=== PATIENT | male | born 1980 | race Caucasian/White ===

== ENCOUNTER 2021-12-01 19:08 | Inpatient (IN) | payer OTHER, SELFPAY ==
--- NOTE | ~2021-12-01 | CT_ITS ---
EXAMINATION: CT ABDOMEN AND PELVIS WITHOUT CONTRAST CLINICAL INFORMATION: Rectal bleeding and pain, rule out colitis COMPARISON: None TECHNIQUE: Multidetector volumetric imaging was performed from the superior aspect of the liver through the pubic symphysis. Sagittal and coronal reformatted images were obtained on the technologist's workstation. This CT examination was performed using dose optimization techniques as appropriate, variously including the following: *Automated exposure control *Adjustment of mA and/or kV according to patient size (this includes techniques or standardized protocols for targeted exams where dose is matched to indication/reason for exam; i.e. extremities or head) *Use of iterative reconstruction technique DLP: 551 mGy-cm FINDINGS: LUNG BASES: Subsegmental atelectasis in the right middle lobe. LIVER, GALLBLADDER, AND BILIARY TREE: The liver is normal in size, shape, and attenuation. No focal hepatic lesion or biliary ductal dilatation is identified. The gallbladder is unremarkable with no evidence of radiopaque gallstones, gallbladder wall thickening, or obvious pericholecystic inflammatory changes. PANCREAS: Unremarkable. SPLEEN: Unremarkable. ADRENAL GLANDS: Unremarkable. KIDNEYS AND URETERS: The kidneys are normal in size, shape, and attenuation. No hydronephrosis, hydroureter, or calculi seen. No perinephric stranding. BLADDER: Unremarkable. GASTROINTESTINAL TRACT: No evidence of bowel obstruction. Although not well distended, there is a relatively short segment of suspected colonic wall thickening at the splenic flexure, raising concern for a possible colitis. Patient appears to be status post appendectomy. No free fluid or free air is seen. ABDOMINAL WALL: No significant hernia is appreciated. LYMPH NODES: Normal. VASCULAR: Unremarkable. PELVIC VISCERA: Unremarkable. OSSEOUS STRUCTURES: Unremarkable. CT/CT abdomen pelvis wo IV con IMPRESSION: Although not well distended, there is a relatively short segment of suspected colonic wall thickening at the splenic flexure which raises concern for possible colitis in the proper clinical setting. No additional acute findings identified.
[2021-12-01 20:34] VITALS: BP 153/97; PULSE 75; RESP 18; TEMP 37.6; O2SAT 96; BMI 29.9
[2021-12-01 22:53] LABS: MANUAL DIFF FLAG NO
[2021-12-01 22:56] LABS: Basophils Percent Auto 0.3 % (0-2); Eosinophils Percent Auto 0.4 % (0-4); Hemoglobin 15.7 g/dl (14.0-18.0); Imm Gran Abs Auto 0.03 X10*3/uL (0.00-0.03); Imm Gran Pct Auto 0.3 % (0.0-0.4); Lymphocytes Percent Auto 20.7 % (20-40); Mean Corpuscular HGB Conc 33.4 g/dl (31.0-36.0); Mean Corpuscular Volume 89.9 fL (80.0-98.0); Mean Platelet Volume 8.5 fL (9.4-12.4); Monocytes Absolute Auto 0.7 X10*3/uL (0.1-1.2); Monocytes Percent Auto 7.3 % (2-11); Neutrophils Absolute Auto 6.8 x10*3/uL (2.0-8.3); Platelet Count 234 X10*3/uL (160-400); Red Blood Count 5.23 X10*6/uL (4.60-5.80); Red Cell Distribution Width 12.2 % (11.0-16.0); White Blood Count 9.6 X10*3/uL (4.8-10.8)
[2021-12-01 23:13] LABS: Alanine Aminotransferase 35 U/L (0-40); Albumin Level 4.5 g/dL (3.5-5.0); Alkaline Phosphatase 52 U/L (39-117); Anion Gap 16 (12-20); Aspartate Amino Transferase 18 U/L (5-37); Bilirubin Direct 0.2 mg/dL (0.0-0.5); Bilirubin Total 0.7 mg/dL (0.0-1.0); Blood Urea Nitrogen 8 mg/dL (9-16); Calcium 9.3 mg/dL (8.4-10.2); Carbon Dioxide 25 mmol/L (22-29); Chloride 103 mmol/L (96-108); Creatinine Clr Calc Pharmacy 91.1; Estimated Glomerular Filt Rate > 60; Glucose Random 112 mg/dL (60-115); Lipase 113 U/L (8-78); Sodium 140 mmol/L (135-145)
[2021-12-01 23:41] VITALS: BP 152/85; PULSE 64; RESP 16; TEMP 36.8; O2SAT 98
[2021-12-02 00:09] LABS: Appearance Urine Clear; Color Urine Yellow; Glucose Urine UA Negative (Negative); Leukocyte Esterase Urine Negative (Negative); Nitrite Urine Negative (Negative); PH 6.5 (5.0-9.0); Specific Gravity - Urine <= 1.005 (1.005-1.025); Urine Blood Negative (Negative); Urine Ketones Negative (Negative); Urine Protein Negative (Neg-Trace)
--- NOTE | 2021-12-02 00:11 | ED.GIBLEED ---
HPI - GI Bleed General Chief complaint: GI Bleed Stated complaint: rectal bleeding Time Seen by Provider: 12/02/21 00:07 Source: patient Mode of arrival: ambulatory Limitations: no limitations History of Present Illness HPI Narrative: 40-year-old male came in for evaluation of rectal bleed and abdominal pain. 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 No recent travel, no recent use of antibiotic. Surgical history is significant for appendectomy. Related Data Allergies Allergy/AdvReac Type Severity Reaction Status Date / Time No Known Allergies Allergy Verified 12/01/21 20:33 [No Known Allergies*] Review of Systems Review of Systems: All other systems are reviewed and are negative Constitutional: Reports as per HPI and Reports no additional constitutional complaints Eyes: Reports as per HPI and Reports no additional eye complaints Reports system reviewed and no additional complaints, except as documented Cardiovascular: Reports as per HPI and Reports no additional cardiovascular complaints Respiratory: Reports as per HPI and Reports no additional respiratory complaints Gastrointestinal: Reports as per HPI and Reports no additional gastrointestinal complaints Genitourinary: Reports no additional female genitourinary complaints Musculoskeletal: Reports no additional musculoskeletal complaints Skin/Breast: Reports system reviewed and no additional complaints, except as docu Psychiatric: Reports no additional psychiatric complaints Endocrine: Reports no additional endocrine complaints Hematologic/Lymphatic: Reports no additional hematologic/lymphatic complaints Allergic/Immunologic: Reports no additional allergic/immunologic complaints Reports system reviewed and no additional complaints, except as documented and Reports Abnormal speech present [facility] Social History Social History Advance Directives: No Advance Directives Information Provided: Yes Physical Exam Vital Signs: Vital Signs: Last Vital Signs Temp 97.8 F 12/02/21 01:50 Pulse 60 12/02/21 01:50 Resp 17 12/02/21 01:50 BP 125/67 12/02/21 01:50 Pulse Ox 97 12/02/21 01:50 O2 Del Method 12/02/21 01:50 BMI result Body Mass Index 29.9 Vital signs have been reviewed as appeared to be correct. Blood pressure normal. Heart rate normal. Respiration rate normal. Temperature normal. Oxygen saturation normal. Appearance: Alert. Oriented X3. No acute distress. Head: Normal external exam. Normocephalic. Atraumatic. No Barrios signs noted. No raccoon eyes noted Eyes: PERRLA. EOMI. Conjunctiva and sclera normal. Eyelids normal. ENT: TM's Normal. Pharynx normal. Uvula midline. Moist mucous membranes. No trismus noted. No drooling noted. No muffled voice noted. Neck: Normal inspection. Neck supple. FROM. No adenopathy. Thyroid Normal. No meningeal signs. No neck mass noted. CVS: Normal heart rate and rhythm. Heart sound normal. No murmurs noted. Pulses normal throughout. Respiratory: No respiratory distress. Painless inspiration. Breath sounds normal. No wheezes/rales/rhonchi noted. Chest nontender. No accessory muscle usage noted or decreased air movement noted. Abdomen: Soft, mild diffuse lower abdominal tenderness, no rebound tenderness, no guarding.. Bowel sounds normal in all 4 quadrants. No distention noted. No organomegaly noted. No visible injury noted. Rectal exam: Hematochezia, no internal or external hemorrhoid. Back: No CVA tenderness. Full range of motion noted. Skin: Skin warm and dry. Normal skin color. Normal skin turgor. No rashes/lesions/lacerations noted. Extremities: No lower extremity edema. Extremities exhibit normal range of motion. Extremities nontender. Neuro: Oriented X 3. Cranial nerve exam: II-XII are grossly intact No motor deficit. No sensory deficit. Reflexes normal. Course Course Course Narrative: 40-year-old male with multiple bloody watery diarrhea in the ED CT of abdomen is consistent with colitis. Start the patient on Solu-Medrol and give antibiotic and will admit for further GI evaluation. MDM - GI Bleed Lab Data Attestation: I reviewed the patient's lab results. Result diagrams: 12/01/21 22:49 12/01/21 22:49 Labs: Lab Results 12/01/21 12/01/21 12/01/21 Range/Units 22:49 22:49 23:39 WBC 9.6 (4.8-10.8) X10*3/uL RBC 5.23 (4.60-5.80) X10*6/uL Hgb 15.7 (14.0-18.0) g/dl Hct 47.0 (42.0-52.0) % MCV 89.9 (80.0-98.0) fL MCH 30.0 (27.0-33.0) pg MCHC 33.4 (31.0-36.0) g/dl RDW 12.2 (11.0-16.0) % Plt Count 234 (160-400) X10*3/uL MPV 8.5 L (9.4-12.4) fL Immature Gran % (Auto) 0.3 (0.0-0.4) % Neut % (Auto) 71.0 (45-73) % Lymph % (Auto) 20.7 (20-40) % [place] % (Auto) 7.3 (2-11) % Eos % (Auto) 0.4 (0-4) % Baso % (Auto) 0.3 (0-2) % Lymph # (Auto) 2.0 (1.2-4.9) X10*3/uL [place] # (Auto) 0.7 (0.1-1.2) X10*3/uL Eos # (Auto) 0.0 (0.0-0.4) X10*3/uL Baso # (Auto) 0.0 (0.0-0.2) X10*3/uL Abs Immat Gran (auto) 0.03 (0.00-0.03) X10*3/uL Absolute Neuts (auto) 6.8 (2.0-8.3) x10*3/uL Absolute Nucleated RBC 0.000 (0.0-0.012) X10*3/uL Nucleated RBC % (auto) 0.0 (0.0-0.2) /100WBC Sodium 140 (135-145) mmol/L Potassium 4.0 (3.3-5.1) mmol/L Chloride 103 (96-108) mmol/L Carbon Dioxide 25 (22-29) mmol/L Anion Gap 16 (12-20) BUN 8 L (9-16) mg/dL Creatinine 1.07 (0.5-1.4) mg/dL Estim Creat Clear Calc 91.1 Estimated GFR > 60 Random Glucose 112 (60-115) mg/dL Calcium 9.3 (8.4-10.2) mg/dL Total Bilirubin 0.7 (0.0-1.0) mg/dL Direct Bilirubin 0.2 (0.0-0.5) mg/dL AST 18 (5-37) U/L ALT 35 (0-40) U/L Alkaline Phosphatase 52 (39-117) U/L Total Protein 7.0 (6.5-8.0) g/dL Albumin 4.5 (3.5-5.0) g/dL Lipase 113 H (8-78) U/L Urine Color Yellow Urine Appearance Clear Urine pH 6.5 (5.0-9.0) Ur Specific [place] <= 1.005 (1.005-1.025) Urine Protein Negative (Neg-Trace) mg/dL Urine Glucose (UA) Negative (Negative) mg/dL Urine Ketones Negative (Negative) mg/dL Urine Blood Negative (Negative) Urine Nitrite Negative (Negative) Ur Leukocyte Esterase Negative (Negative) Stool Occult Blood (NEGATIVE) 12/02/21 Range/Units 00:12 WBC (4.8-10.8) X10*3/uL RBC (4.60-5.80) X10*6/uL Hgb (14.0-18.0) g/dl Hct (42.0-52.0) % MCV (80.0-98.0) fL MCH (27.0-33.0) pg MCHC (31.0-36.0) g/dl RDW (11.0-16.0) % Plt Count (160-400) X10*3/uL MPV (9.4-12.4) fL Immature Gran % (Auto) (0.0-0.4) % Neut % (Auto) (45-73) % Lymph % (Auto) (20-40) % [place] % (Auto) (2-11) % Eos % (Auto) (0-4) % Baso % (Auto) (0-2) % Lymph # (Auto) (1.2-4.9) X10*3/uL [place] # (Auto) (0.1-1.2) X10*3/uL Eos # (Auto) (0.0-0.4) X10*3/uL Baso # (Auto) (0.0-0.2) X10*3/uL Abs Immat Gran (auto) (0.00-0.03) X10*3/uL Absolute Neuts (auto) (2.0-8.3) x10*3/uL Absolute Nucleated RBC (0.0-0.012) X10*3/uL Nucleated RBC % (auto) (0.0-0.2) /100WBC Sodium (135-145) mmol/L Potassium (3.3-5.1) mmol/L Chloride (96-108) mmol/L Carbon Dioxide (22-29) mmol/L Anion Gap (12-20) BUN (9-16) mg/dL Creatinine (0.5-1.4) mg/dL Estim Creat Clear Calc Estimated GFR Random Glucose (60-115) mg/dL Calcium (8.4-10.2) mg/dL Total Bilirubin (0.0-1.0) mg/dL Direct Bilirubin (0.0-0.5) mg/dL AST (5-37) U/L ALT (0-40) U/L Alkaline Phosphatase (39-117) U/L Total Protein (6.5-8.0) g/dL Albumin (3.5-5.0) g/dL Lipase (8-78) U/L Urine Color Urine Appearance Urine pH (5.0-9.0) Ur Specific [place] (1.005-1.025) Urine Protein (Neg-Trace) mg/dL Urine Glucose (UA) (Negative) mg/dL Urine Ketones (Negative) mg/dL Urine Blood (Negative) Urine Nitrite (Negative) Ur Leukocyte Esterase (Negative) Stool Occult Blood POSITIVE (NEGATIVE) Imaging Data CT abdomen and pelvis: Attestation: I personally reviewed and interpreted this imaging study as follows: Radiologist's impression: Although not well distended, there is a relatively short segment of suspected colonic wall thickening at the splenic flexure which raises concern for possible colitis in the proper clinical setting. No additional acute findings identified. Discharge Plan Discharge Clinical Impression: Hematochezia, Lower gastrointestinal hemorrhage Patient Disposition: Admitted As Inpatient
[2021-12-02 00:17] LABS: OBS Int Ctl Valid YES; OBS1 POSITIVE (NEGATIVE)
[2021-12-02 01:50] VITALS: BP 125/67; PULSE 60; RESP 17; TEMP 36.6; O2SAT 97
[2021-12-02] MEDS: metroNIDAZOLE 500 MG TABLET PO (03:26)
[2021-12-02] MEDS: methylPREDNISolone Sod Succ 125 MG/2 ML VIAL IVPUSH (03:26)
[2021-12-02] MEDS: levoFLOXacin/D5W 750 MG/150 ML PIGGYBACK 100 MG IV (04:03)
--- NOTE | 2021-12-02 04:58 | P.HPHOSP_ITS ---
History of Present Illness Date of Service: 12/02/21 Chief Complaint: Hematochezia 40-year-old male with no significant past medical history presents to the hospital with complaints of bloody diarrhea. Patient reports generalized abdominal pain, several episodes of bloody diarrhea, nausea, and some episodes of vomiting. Patient denies any previous similar episode. He reports his symptoms started a prior to presentation. Denies any fever no chills, no chest pain or shortness of breath, no urinary symptoms and no lower extremity edema. On arrival to the ED patient hemodynamically stable with no significant abnormality Labs unremarkable Abdominal pelvic CT shows acute colitis in the splenic flexure Patient started on IV steroids and will be admitted for further evaluation Review of Systems Review of Systems: Yes all other systems are reviewed and are negative [facility] Medical History (Updated 12/02/21 @ 07:20 by Carolina Jules MD) No pertinent past medical history Family History (Updated 12/02/21 @ 07:19 by Carolina Jules MD) Other Diabetes Hypertension Surgical History (Updated 12/02/21 @ 07:18 by Carolina Jules MD) No pertinent past surgical history Social History (Updated 12/02/21 @ 07:19 by Carolina Jules MD) Alcohol intake: current Patient Tobacco Use Status: Never used Tobacco Use of substances other than those prescribed or required for medical reasons: Yes Substance Use Type: Marijuana Advance Directives: No Advance Directives Information Provided: Yes Meds Allergies Allergy/AdvReac Type Severity Reaction Status Date / Time No Known Allergies Allergy Verified 12/01/21 20:33 [No Known Allergies*] Home Medications Medication Instructions Recorded Confirmed Last Taken Type bupropion HCl 150 mg 24 hr tablet, 1 tab PO DAILY 12/02/21 Unknown History extended release methylphenidate HCl 10 mg biphasic 1 cap PO DAILY 12/02/21 Unknown History 30-70 capsule,extended release sertraline 100 mg tablet 1.5 tab PO DAILY 12/02/21 Unknown History Physical Exam Vital Signs and Narrative: Vital Signs: Last Vital Signs Temp 97.8 F 12/02/21 01:50 Pulse 60 12/02/21 01:50 Resp 17 12/02/21 01:50 BP 125/67 12/02/21 01:50 Pulse Ox 97 12/02/21 01:50 O2 Del Method 12/02/21 01:50 BMI result Body Mass Index 29.9 Const: General: cooperative and no acute distress Orientation/consciousness: patient oriented x3 Eyes: General: appearance normal, both eyes and all related structures Resp: Effort & Inspection: normal respiratory effort Auscultation: clear to auscultation bilaterally Cardio: Rate: regular rate Rhythm: regular rhythm GI: Palpation (GI): Soft to palpation Auscultation: normal bowel sounds Skin: General skin exam: no rashes or lesions noted Neuro: General: patient oriented x3 Cognition (Neuro): normal cognition Extrem: General: Yes normal to inspection and Yes no pedal edema Results Labs CBC and Chem 7: 12/01/21 22:49 12/01/21 22:49 Labs: Laboratory Results - last 24 hr 12/01/21 12/01/21 12/01/21 22:49 22:49 23:39 MCV 89.9 MCH 30.0 MCHC 33.4 RDW 12.2 Plt Count 234 MPV 8.5 L Immature Gran % (Auto) 0.3 Neut % (Auto) 71.0 Lymph % (Auto) 20.7 [place] % (Auto) 7.3 Eos % (Auto) 0.4 Baso % (Auto) 0.3 Lymph # (Auto) 2.0 [place] # (Auto) 0.7 Eos # (Auto) 0.0 Baso # (Auto) 0.0 Abs Immat Gran (auto) 0.03 Absolute Neuts (auto) 6.8 Absolute Nucleated RBC 0.000 Nucleated RBC % (auto) 0.0 Anion Gap 16 Estim Creat Clear Calc 91.1 Estimated GFR > 60 Random Glucose 112 Lactic Acid Calcium 9.3 Total Bilirubin 0.7 Direct Bilirubin 0.2 AST 18 ALT 35 Alkaline Phosphatase 52 Total Protein 7.0 Albumin 4.5 Lipase 113 H Urine Color Yellow Urine Appearance Clear Urine pH 6.5 Ur Specific [place] <= 1.005 Urine Protein Negative Urine Glucose (UA) Negative Urine Ketones Negative Urine Blood Negative Urine Nitrite Negative Ur Leukocyte Esterase Negative Stool Occult Blood 12/02/21 12/02/21 00:12 03:39 MCV MCH MCHC RDW Plt Count MPV Immature Gran % (Auto) Neut % (Auto) Lymph % (Auto) [place] % (Auto) Eos % (Auto) Baso % (Auto) Lymph # (Auto) [place] # (Auto) Eos # (Auto) Baso # (Auto) Abs Immat Gran (auto) Absolute Neuts (auto) Absolute Nucleated RBC Nucleated RBC % (auto) Anion Gap Estim Creat Clear Calc Estimated GFR Random Glucose Lactic Acid 1.0 Calcium Total Bilirubin Direct Bilirubin AST ALT Alkaline Phosphatase Total Protein Albumin Lipase Urine Color Urine Appearance Urine pH Ur Specific [place] Urine Protein Urine Glucose (UA) Urine Ketones Urine Blood Urine Nitrite Ur Leukocyte Esterase Stool Occult Blood POSITIVE Imaging Radiologist's Impressions: Impressions Abdomen/Pelvis CT 12/02/21 01:18 IMPRESSION: Although not well distended, there is a relatively short segment of suspected colonic wall thickening at the splenic flexure which raises concern for possible colitis in the proper clinical setting. No additional acute findings identified. Assessment and Plan (1) Hematochezia: Status: Acute (2) Acute colitis: Status: Acute Plan 40-year-old male with no significant past medical history presents to the hospital with hematochezia # hematochezia - hemoglobin stable - likely secondary to acute colitis - cannot rule out ulcerative colitis - at this time will treat with steroids, antibiotics - GI consulted # acute colitis - likely ulcerative given his age and presentation - will treat with steroids and IV antibiotics at this time pending GI consult DVT prophylaxis: SCDs Quality Stroke Does the patient have a stroke diagnosis?: No VTE Prior VTE?: No VTE Risk Level:: Medical - moderate - high VTE Device Contraindication: N/A - Device Ordered VTE Drug Contraindication: Treatment Not Indicated
[2021-12-02 05:14] VITALS: BP 122/70; PULSE 75; RESP 18; TEMP 36.4; O2SAT 98
[2021-12-02 06:09] VITALS: RESP 16
[2021-12-02] MEDS: Morphine Sulfate 4 MG/ML CARTRIDGE IVPUSH (06:09)
[2021-12-02 06:40] LABS: COVID-19 Test Negative (Negative); IDNOW Serial# 16C4AD1C
[2021-12-02 07:37] VITALS: BP 128/62; PULSE 83; RESP 12
[2021-12-02 07:45] LABS: Basophils Percent Auto 0.2 % (0-2); Hematocrit 47.3 % (42.0-52.0); Hemoglobin 15.7 g/dl (14.0-18.0); Imm Gran Abs Auto 0.06 X10*3/uL (0.00-0.03); Imm Gran Pct Auto 0.5 % (0.0-0.4); Lymphocytes Absolute Auto 0.9 X10*3/uL (1.2-4.9); MANUAL DIFF FLAG SCAN; Mean Corpuscular HGB Conc 33.2 g/dl (31.0-36.0); Mean Corpuscular Hemoglobin 29.8 pg (27.0-33.0); Mean Corpuscular Volume 89.9 fL (80.0-98.0); Mean Platelet Volume 8.7 fL (9.4-12.4); Monocytes Absolute Auto 0.2 X10*3/uL (0.1-1.2); Monocytes Percent Auto 1.2 % (2-11); Neutrophils Absolute Auto 11.2 x10*3/uL (2.0-8.3); Neutrophils Percent Auto 91.1 % (45-73); Platelet Count 245 X10*3/uL (160-400); Red Blood Count 5.26 X10*6/uL (4.60-5.80); SCAN SMEAR FLAG 1; White Blood Count 12.3 X10*3/uL (4.8-10.8)
[2021-12-02 08:00] VITALS: BP 131/73; PULSE 87; RESP 18; TEMP 36.6; O2SAT 97
[2021-12-02 08:06] LABS: SLIDE REVIEW VERIFIED
[2021-12-02 08:16] LABS: Blood Urea Nitrogen 8 mg/dL (9-16); Calcium 9.2 mg/dL (8.4-10.2); Creatinine Clr Calc Pharmacy 81.9; Estimated Glomerular Filt Rate > 60; Glucose Random 130 mg/dL (60-115)
[2021-12-02 08:23] LABS: Anion Gap 16 (12-20); Carbon Dioxide 24 mmol/L (22-29); Chloride 102 mmol/L (96-108); Potassium 4.9 mmol/L (3.3-5.1); Sodium 137 mmol/L (135-145)
[2021-12-02 09:15] LABS: C Reactive Protein 0.29 mg/dL (< or = 0.50)
[2021-12-02 09:22] VITALS: BMI 29.9
--- NOTE | 2021-12-02 09:35 | P.CNGI_ITS ---
History of Present Illness Data of Consult Service Date: 12/02/21 Requesting physician: Carolina Jules Primary Care Provider: None Physician HPI Reason for consult: Bloody diarrhea This is a 40-year-old gentleman with no significant past medical history who presented to the hospital yesterday morning for sudden onset of abdominal pain, nausea, vomiting and diarrhea and was found to have an abnormal CT scan. History obtained from the patient, who states that he was in his usual state of health Wednesday, woke up in the early hours of Wednesday with severe abdominal pain, cramping, fevers, chills and proceeded to have loose bowel movements. Shortly after he also developed nausea and vomiting. After a few bowel movements, I started seeing drops of blood in the toilet bowl, which progressively increased. Denies any stools that were maroon or mixed with blood. Due to persistent abdominal pain, fevers and diarrhea, he presented to the emergency room. Vitals initially showed a low-grade temp. Lab significant for elevated white count. CT scan showed colon wall thickening in the left colon. Patient had an egg sandwich in [employer] the evening before getting sick, but does not recall consuming undercooked eggs or spoiled milk. He lives alone, no sick contacts at home. 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 Currently in the time of evaluation, he reports feeling much better, abdominal cramping has improved. Has not had any further bowel movements since coming to the hospital. No further nausea or vomiting either. Feels ready to try oral diet. Review of Systems Review of Systems: Yes all other systems are reviewed and are negative [facility] Past Medical History Medical History No pertinent past medical history Family History Family History Other Diabetes Hypertension Surgical History Surgical History No pertinent past surgical history Social History Social History (Updated 12/02/21 @ 09:39 by Melissa Spence MD) Household Members: Spouse Housing: House Do you presently have visiting nurse or other home services: No Alcohol intake: current Patient Tobacco Use Status: Never used Tobacco Use of substances other than those prescribed or required for medical reasons: Yes Substance Use Type: Marijuana Advance Directives: No Advance Directives Information Provided: Yes Meds Allergies Allergy/AdvReac Type Severity Reaction Status Date / Time No Known Allergies Allergy Verified 12/01/21 20:33 [No Known Allergies*] Active Medications: Current Medications Acetaminophen (Acetaminophen 325 Mg Tablet) 650 mg PO Q6H PRN PRN Reason: Pain, Mild (Pain Scale 1-3) Dextrose (Dextrose 50 % 25 Gm/50 Ml Syringe) 25 gm IVPUSH Q15M PRN; Protocol PRN Reason: per Hypoglycemia Standing Ord. Docusate Sodium (Docusate Sodium 100 Mg Capsule) 100 mg PO DAILY PRN PRN Reason: Constipation Glucose (Glucose Gel 15 Gm Gel..Gram.) 15 gm PO Q15M PRN; Protocol PRN Reason: per Hypoglycemia Standing Ord. Metronidazole (Metronidazole 500 Mg Tablet) 500 mg PO Q8H KRAINA Morphine Sulfate (Morphine Sulfate 4 Mg/Ml Cartridge) 4 mg IVPUSH Q4H PRN; Protocol PRN Reason: Pain, Severe (Pain Scale 7-10) Last Admin: 12/02/21 06:09 Dose: 4 mg Ondansetron HCl (Ondansetron Hcl 4 Mg/2 Ml Vial) 4 mg IVPUSH Q8H PRN PRN Reason: Nausea and Vomiting Sodium Chloride (0.9 % Sodium Chloride Flush 3 Ml Syringe) [address] [facility] Home Medications Medication Instructions Recorded Confirmed Last Taken Type bupropion HCl 150 mg 24 hr tablet, 1 tab PO DAILY 12/02/21 Unknown History extended release methylphenidate HCl 10 mg biphasic 1 cap PO DAILY 12/02/21 Unknown History 30-70 capsule,extended release sertraline 100 mg tablet 1.5 tab PO DAILY 12/02/21 Unknown History Physical Exam Vital Signs: Vital Signs: Last Vital Signs Temp 98 F 12/02/21 08:00 Pulse 87 12/02/21 08:00 Resp 18 12/02/21 08:00 BP 131/73 12/02/21 08:00 Pulse Ox 97 12/02/21 08:00 O2 Del Method 12/02/21 08:00 BMI result Body Mass Index 29.9 Gen appear: No acute distress, well nourished HEENT: no icterus, no cervical lymphadenopathy Chest: No overt resp distress CVS: S1/S2, regular Abd: soft, nontender, nondistended Psych: Stable affect, answering questions appropriately Neuro: A/Ox3 noted to move all extremities spontaneously Ext: no peripheral edema Results Labs CBC & Chem 7: 12/02/21 07:25 12/02/21 07:25 Labs: Short CBC 12/01/21 12/02/21 Range/Units 22:49 07:25 WBC 9.6 12.3 H (4.8-10.8) X10*3/uL Hgb 15.7 15.7 (14.0-18.0) g/dl Hct 47.0 47.3 (42.0-52.0) % Plt Count 234 245 (160-400) X10*3/uL BMP 12/01/21 12/02/21 22:49 07:25 Sodium 140 137 Potassium 4.0 4.9 D Chloride 103 102 Carbon Dioxide 25 24 BUN 8 L 8 L Creatinine 1.07 1.19 Calcium 9.3 9.2 Liver Function 12/01/21 Range/Units 22:49 Total Bilirubin 0.7 (0.0-1.0) mg/dL Direct Bilirubin 0.2 (0.0-0.5) mg/dL AST 18 (5-37) U/L ALT 35 (0-40) U/L Alkaline Phosphatase 52 (39-117) U/L Albumin 4.5 (3.5-5.0) g/dL Urine 12/01/21 Range/Units 23:39 Urine Color Yellow Urine Appearance Clear Urine pH 6.5 (5.0-9.0) Ur Specific [place] <= 1.005 (1.005-1.025) Urine Protein Negative (Neg-Trace) mg/dL Urine Glucose (UA) Negative (Negative) mg/dL Imaging CT scan - abdomen: Radiologist's impression: ?No evidence of bowel obstruction. Although not well distended, there is a relatively short segment of suspected colonic wall thickening at the splenic flexure, raising concern for a possible colitis. Patient appears to be status post appendectomy. No free fluid or free air is seen.? Assessment and Plan (1) Acute diarrhea: Status: Acute (2) Acute colitis: Status: Acute (3) Hematochezia: Status: Acute Plan Patient presents with acute diarrheal illness with scant amount of blood in stools. This is consistent with outlet bleeding likely exacerbated with frequent bowel movements. Acute diarrheal illness/colitis is most likely infectious in nature. Patient has improved significantly within 24 hours, which is also consistent with an infectious picture. Other differentials include inflammatory bowel disease, ischemia. Recommendations: -Would hold off on antibiotic, specially as E Coli remains a possible infectious cause and ABx may predispose to HUS -No indication for steroids at present -CRP, fecal calpro and GI panel ordered -Can be started on BRAT diet as tolerated -Office follow up in 4 weeks for check in and to rule out any persistent/chronic symptoms that may need further work up at that time. Recommendations were reviewed with the hospitalist. Thank you for allowing me to participate in Jose Manuel's care. Please reach out for any questions or concerns. Procedures Date of Service Date of Service: 12/02/21
[2021-12-02 10:46] VITALS: BP 121/75; PULSE 75; RESP 16; TEMP 36.1; O2SAT 97
--- NOTE | 2021-12-02 11:03 | PHA.MEDREC ---
Pharmacy Consult ? Medication Reconciliation Pharmacy has completed the medication reconciliation. Pt confirmed he only takes one whole tablet of sertraline 100mg, not 1.5 tab
[2021-12-02 11:11] LABS: Glucose, Whole Blood 128 mg/dL (60-115)
--- NOTE | 2021-12-02 11:44 | MHC.CM.PN ---
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 JEREMY VAX X 3. [facility]CP [facility]
--- NOTE | 2021-12-02 13:57 | P.DS_ITS ---
DS: Providers Provider Date of Service: 12/02/21 Date of admission: 12/02/21 04:55 Primary care physician: None Physician Consults: 12/02/21 04:52 Consult to Gastroenterology Routine Consulting Provider: Melissa Spence Reason for consultation: Colitis , UC? Has provider been notified: No DS: Diagnosis Discharge Diagnosis (1) Acute diarrhea: Status: Acute (2) Acute colitis: Status: Acute (3) Hematochezia: Status: Acute DS: Summary Hospital Course Hospital Course: 40-year-old male with no significant past medical history presents to the hospital with complaints of bloody diarrhea.? Patient reports generalized abdominal pain, several episodes of bloody diarrhea, nausea, and some episodes of vomiting.? Patient denies any previous similar episode.? He reports his symptoms started a prior to presentation.? Denies any fever no chills, no chest pain or shortness of breath, no urinary symptoms and no lower extremity edema. On arrival to the ED patient hemodynamically stable with no significant abnormality Labs unremarkable Abdominal pelvic CT shows acute colitis in the splenic flexure Patient started on IV steroids and will be admitted for further evaluation. Hospital course: Patient came with possible colitis likely infectious - resolved repeatedly, seen by GI -recommended to defer antibiotic,blood cultures pending but patient is asymptomatic, no fever, patient does not have any diarrhea anymore so no stool study able to send. Seen by GI recommended advanced diet which patient tolerated and subsequently discharged. moniter cbc with pcp due to mild leucocytosis. Patient is to follow up with GI-out patiently for further workup for colitis plan: Would hold off on antibiotic, specially as E Coli remains a possible infectious cause and ABx may predispose to HUS -No indication for steroids at present. started on BRAT diet as tolerated -Office follow up in outpatient for check in and to rule out any persistent/chronic symptoms that may need further work up at that time. Above management discussed with the patient in detail length he understand and in agreement with the above plan, time spent 50 minutes and 50% time spent on counseling. Significant findings: As above. Procedures performed: None. Treatment and response: As above. Complications: None. Time Spent with Patient Time attestation: Total time spent providing and/or coordinating discharge services: Discharge coordination time: Greater than 30 minutes Quality: Safe Use of Opioids Does Pt have an Active Cancer Diagnosis on the Problem List?: No Quality: Stroke Does the patient have a stroke diagnosis?: No Physical Exam Vital Signs: Vital Signs: Last Vital Signs Temp 97 F 12/02/21 10:46 Pulse 75 12/02/21 10:46 Resp 16 12/02/21 10:46 BP 121/75 12/02/21 10:46 Pulse Ox 97 12/02/21 10:46 O2 Del Method 12/02/21 10:46 BMI result Body Mass Index 29.9 Appearance: Alert.? Oriented X3.? not in distress.? Eyes: Pupils equal, round and reactive to light.? Sclera nonicteric.? ENT: Pharynx normal.? Moist mucous membranes. cvs: rrr, [id number] . res: clear to auscultation ,no rhonchii or wheezing abd: no rebound or guarding ,nt, bs present. ext pulses present , no cyanosis . neuro: axo3 , nonfocal. DS: Data Data Completed and Pending Labs on day of discharge: Laboratory Results - last 24 hr 12/01/21 12/01/21 12/01/21 22:49 22:49 23:39 WBC 9.6 RBC 5.23 Hgb 15.7 Hct 47.0 MCV 89.9 MCH 30.0 MCHC 33.4 RDW 12.2 Plt Count 234 MPV 8.5 L Immature Gran % (Auto) 0.3 Neut % (Auto) 71.0 Lymph % (Auto) 20.7 [place] % (Auto) 7.3 Eos % (Auto) 0.4 Baso % (Auto) 0.3 Lymph # (Auto) 2.0 [place] # (Auto) 0.7 Eos # (Auto) 0.0 Baso # (Auto) 0.0 Abs Immat Gran (auto) 0.03 Absolute Neuts (auto) 6.8 Absolute Nucleated RBC 0.000 Nucleated RBC % (auto) 0.0 Smear Tech's Comments Sodium 140 Potassium 4.0 Chloride 103 Carbon Dioxide 25 Anion Gap 16 BUN 8 L Creatinine 1.07 Estim Creat Clear Calc 91.1 Estimated GFR > 60 POC Glucose Random Glucose 112 Lactic Acid Calcium 9.3 Total Bilirubin 0.7 Direct Bilirubin 0.2 AST 18 ALT 35 Alkaline Phosphatase 52 C-Reactive Protein Total Protein 7.0 Albumin 4.5 Lipase 113 H Urine Color Yellow Urine Appearance Clear Urine pH 6.5 Ur Specific [place] <= 1.005 Urine Protein Negative Urine Glucose (UA) Negative Urine Ketones Negative Urine Blood Negative Urine Nitrite Negative Ur Leukocyte Esterase Negative Stool Occult Blood COVID-19 ([facility]) COVID-19 Clin Com 12/02/21 12/02/21 12/02/21 00:12 03:39 06:21 WBC RBC Hgb Hct MCV MCH MCHC RDW Plt Count MPV Immature Gran % (Auto) Neut % (Auto) Lymph % (Auto) [place] % (Auto) Eos % (Auto) Baso % (Auto) Lymph # (Auto) [place] # (Auto) Eos # (Auto) Baso # (Auto) Abs Immat Gran (auto) Absolute Neuts (auto) Absolute Nucleated RBC Nucleated RBC % (auto) Smear Tech's Comments Sodium Potassium Chloride Carbon Dioxide Anion Gap BUN Creatinine Estim Creat Clear Calc Estimated GFR POC Glucose Random Glucose Lactic Acid 1.0 Calcium Total Bilirubin Direct Bilirubin AST ALT Alkaline Phosphatase C-Reactive Protein Total Protein Albumin Lipase Urine Color Urine Appearance Urine pH Ur Specific [place] Urine Protein Urine Glucose (UA) Urine Ketones Urine Blood Urine Nitrite Ur Leukocyte Esterase Stool Occult Blood POSITIVE COVID-19 ([facility]) Negative COVID-19 Clin Com See Note 12/02/21 12/02/21 12/02/21 07:25 07:25 11:06 WBC 12.3 H RBC 5.26 Hgb 15.7 Hct 47.3 MCV 89.9 MCH 29.8 MCHC 33.2 RDW 12.0 Plt Count 245 MPV 8.7 L Immature Gran % (Auto) 0.5 H Neut % (Auto) 91.1 H Lymph % (Auto) 7.0 L [place] % (Auto) 1.2 L Eos % (Auto) 0.0 Baso % (Auto) 0.2 Lymph # (Auto) 0.9 L [place] # (Auto) 0.2 Eos # (Auto) 0.0 Baso # (Auto) 0.0 Abs Immat Gran (auto) 0.06 H Absolute Neuts (auto) 11.2 H Absolute Nucleated RBC 0.000 Nucleated RBC % (auto) 0.0 Smear Tech's Comments VERIFIED Sodium 137 Potassium 4.9 D Chloride 102 Carbon Dioxide 24 Anion Gap 16 BUN 8 L Creatinine 1.19 Estim Creat Clear Calc 81.9 Estimated GFR > 60 POC Glucose 128 H Random Glucose 130 H Lactic Acid Calcium 9.2 Total Bilirubin Direct Bilirubin AST ALT Alkaline Phosphatase C-Reactive Protein 0.29 Total Protein Albumin Lipase Urine Color Urine Appearance Urine pH Ur Specific [place] Urine Protein Urine Glucose (UA) Urine Ketones Urine Blood Urine Nitrite Ur Leukocyte Esterase Stool Occult Blood COVID-19 ([facility]) COVID-19 Clin Com Additional Comments Additional comments: CT/CT abdomen pelvis wo IV con IMPRESSION: Although not well distended, there is a relatively short segment of suspected colonic wall thickening at the splenic flexure which raises concern for possible colitis in the proper clinical setting. No additional acute findings identified. Discharge Plan Discharge Anticipated Discharge Date/Time: 12/02/21 13:47 Patient Disposition: Home, Self-Care Discharge Diagnosis: colitis Referrals: Physician,None [Primary Care Provider] - 1 Week Melissa Spence MD [Physician] - 2 Weeks (follow up outaptient) Discharge Medications: Continued sertraline 100 mg tablet 1 tab PO DAILY bupropion HCl 150 mg tablet extended release 24 hr 1 tab PO DAILY methylphenidate HCl 10 mg capsule, ER biphasic 30-70 1 cap PO DAILY Discharge Orders: Discharge Order (Routine); Ordered 12/02/21 Ordered By: Samreen Phillips Diet: Advance to usual diet Activity on Discharge: As tolerated Stand Alone Forms: Patient Portal Discharge page Care Plan Goals: Patient came with possible colitis likely viral- resolved repeatedly, seen by GI -recommended to defer antibiotic,blood cultures pending but patient is asymptomatic, no fever, patient does not have any diarrhea anymore so no stool study able to send. Seen by GI recommended advanced diet which patient tolerated and subsequently discharged. moniter cbc with pcp due to mild leucocytosis. Patient is to follow up with GI-out patiently for further workup for colitis. Health Concerns: If abdominal pain or nausea vomiting or diarrhea or fever please go to nearest emergency room for further evaluation. Plan of Treatment: BRAT diet as tolerated Assessment: As above.
== END 2021-12-02 14:36 | disposition home or self-care (01) | DRG 245 ==
LOC: HO.ED 12-02 02:49 → HO.EDOVER 12-02 05:00 → HO.S3 12-02 07:33
PROVIDERS: Admitting Provider Internal Medicine; Emergency Provider Emergency Medicine; PCP Nurse Practitioner Family; Visit Provider Internal Medicine
DX: K51.911 Ulcerative colitis, unspecified with rectal bleeding (principal); D72.829 Elevated white blood cell count, unspecified; Z20.822 Contact with and (suspected) exposure to COVID-19; Z79.899 Other long term (current) drug therapy
CPT/HCPCS: 36415; 74176; 80048; 80076; 81003; 82272; 82947; 83605; 83690; 85025; 86140; 87040; 87635; 99218; 99284; J1956; J2270; J2930

== ENCOUNTER 2022-06-04 12:39 | Inpatient (IN) | payer OTHER, SELFPAY ==
--- NOTE | 2022-06-04 12:53 | MHC.CARE ---
CARE Team received an expect call from [facility] Co-Response, Pt was section 12'd to the ED due to presenting as manic, religiously preoccupied and earlier in the day broke into someone he knows from jewish's home. Pt has a known hx of bipolar disorder. Pt did not have full crisis eval.
--- NOTE | 2022-06-04 12:56 | ED_ITS ---
HPI - Psych General Chief Complaint: Psychiatric Symptoms Stated Complaint: crisis,uncooperative w/shpd on board per ems Time Seen by Provider: 06/04/22 12:52 Source: EMS Mode of arrival: EMS History of Present Illness HPI Narrative: This is 41 years old man brought in by ambulance on a Section 12 he is very agitated uncooperative during the exam he has history of bipolar disorder. EMS a work MD complaint: anxiety and other (agitation) Onset (ago): hour(s) (1) Duration: constant Relieving factors: none Exacerbating factors: none Related Data Home Medications Medication Instructions Recorded Confirmed bupropion HCl 150 mg 24 hr tablet, 1 tab PO DAILY 12/02/21 12/02/21 extended release methylphenidate HCl 10 mg biphasic 1 cap PO DAILY 12/02/21 12/02/21 30-70 capsule,extended release sertraline 100 mg tablet 1 tab PO DAILY 12/02/21 12/02/21 Allergies Allergy/AdvReac Type Severity Reaction Status Date / Time No Known Allergies Allergy Verified 12/01/21 20:33 [No Known Allergies*] Review of Systems Review of Systems: Yes Unobtainable due to mental condition [facility] Past Medical History [facility] Narrative: bipolar disorder,colitis Medical History No pertinent past medical history Surgical History No pertinent past surgical history Family History Family History Other Diabetes Hypertension Social History Social History Household Members: Spouse Housing: House Do you presently have visiting nurse or other home services: No Alcohol intake: current Patient Tobacco Use Status: Never used Tobacco Substance Use Type: Marijuana Advance Directives: No Advance Directives Information Provided: No service: No Current occupational status: employed Physical Exam Vital Signs: Vital Signs: Last Vital Signs Pulse 94 06/04/22 13:37 Resp 16 06/04/22 13:37 BP 120/70 06/04/22 13:37 Pulse Ox 97 06/04/22 13:37 O2 Del Method Room Air 06/04/22 13:37 BMI result Body Mass Index 27.4 Const: General: well developed, alert, awake and Physically active Nutritional Appearance: average body habitus Limitations: behavioral limitations HEENT: Head: Yes normal to inspection General nose exam: Normal external nose present Mouth: Normal oral and palatal mucosa present Neck: Neck: Yes normal visual inspection Chest: Chest palpation & inspection: normal inspection of the chest Resp: Effort & Inspection: normal respiratory effort Auscultation: clear to auscultation bilaterally Cardio: Jugular venous distension: no JVD Rate: regular rate Rhythm: regular rhythm GI: Inspection: Yes normal to inspection Auscultation: normal bowel sounds Skin: General skin exam: no rashes or lesions noted Rashes: no rashes Psych: Speech and movement: Pressured speech present Affect: Animated affect present, Anxious affect present and Hostile affect present Attitude: Belligerent attititude/behavior present Thought content: Paranoid delusions present Course Reevaluation(s) Reevaluation #1: Pt very agitated restrained chemically Time: 13:04 Reevaluation #2: Sleeping in NAD off restrains Time: 15:47 Reevaluation #3: Pt will be signed off to Dr Garcia Time: 15:48 Medications Administered Discontinued Medications Generic Name Dose Route Start Last Admin Trade Name Freq PRN Reason Stop Dose Admin Lorazepam 2 mg 06/04/22 12:54 06/04/22 13:16 Lorazepam 2 Mg/Ml Vial IM 06/04/22 12:55 2 mg ONCE ONE Administration Olanzapine 10 mg 06/04/22 12:55 06/04/22 13:16 Olanzapine 10 Mg Vial IM 06/04/22 12:56 10 mg STAT STA Administration Medical Decision Making Lab Data Labs: Lab Results 06/04/22 Range/Units 14:24 COVID-19 ([facility]) Negative (Negative) COVID-19 Clin Com See Note Discharge Plan Discharge Clinical Impression: Acute psychosis Patient Disposition: Still a Patient Prescriptions: No Action sertraline 100 mg tablet 1 tab PO DAILY bupropion HCl 150 mg tablet extended release 24 hr 1 tab PO DAILY methylphenidate HCl 10 mg capsule, ER biphasic 30-70 1 cap PO DAILY
[2022-06-04 13:07] VITALS: BP 163/90; PULSE 114; RESP 24; O2SAT 97
[2022-06-04] MEDS: OLANZapine 10 MG VIAL IM (13:16)
[2022-06-04] MEDS: LORazepam 2 MG/ML VIAL IM (13:16)
[2022-06-04 13:22] VITALS: BP 131/83; PULSE 105; RESP 18; O2SAT 98
[2022-06-04 13:27] VITALS: RESP 22; BMI 27.4
[2022-06-04 13:37] VITALS: BP 120/70; PULSE 94; RESP 16; O2SAT 97
--- NOTE | 2022-06-04 13:45 | PC.NURSE ---
Pt aggressive on arrival, labile, religiously preoccupied, swearing and displaying threatening behaviors towards staff and other patients, all efforts at de-escalation unsuccessful. MD into pod along with security and PD, decision made to chemically and physically restrain pt for staff and pt safety. Pt was successfully restrained at 1307 with no injuries sustained to staff or pt. Pt received zyprexa 10mg IM, and ativan 2mg IM. Spit abel applied to pt after he attempted to spit on staff and security. Unable to assess suicidality at this time due to pt's current presentation.
--- NOTE | 2022-06-04 13:50 | PC.NURSE ---
Pt appears to be sleeping at this time, security in to bedside to trial release lower limbs. PCT remains at bedside for 1:1. +CMS to all extremities.
[2022-06-04 14:56] LABS: COVID-19 Test Negative (Negative); IDNOW Serial# 08D9AD1C
[2022-06-04 19:22] VITALS: BP 105/51; PULSE 73; RESP 18; TEMP 36.7; O2SAT 96
[2022-06-04 19:29] LABS: MANUAL DIFF FLAG NO
[2022-06-04 19:31] LABS: Basophils Absolute Auto 0.1 X10*3/uL (0.0-0.2); Basophils Percent Auto 0.6 % (0-2); Eosinophils Absolute Auto 0.1 X10*3/uL (0.0-0.4); Eosinophils Percent Auto 0.8 % (0-4); Hemoglobin 14.7 g/dl (14.0-18.0); Imm Gran Abs Auto 0.03 X10*3/uL (0.00-0.03); Imm Gran Pct Auto 0.3 % (0.0-0.4); Lymphocytes Absolute Auto 2.3 X10*3/uL (1.2-4.9); Lymphocytes Percent Auto 26.8 % (20-40); Mean Corpuscular HGB Conc 33.4 g/dl (31.0-36.0); Mean Corpuscular Hemoglobin 29.9 pg (27.0-33.0); Mean Corpuscular Volume 89.6 fL (80.0-98.0); Mean Platelet Volume 8.6 fL (9.4-12.4); Monocytes Absolute Auto 0.9 X10*3/uL (0.1-1.2); Monocytes Percent Auto 10.5 % (2-11); Neutrophils Absolute Auto 5.3 x10*3/uL (2.0-8.3); Platelet Count 234 X10*3/uL (160-400); Red Blood Count 4.91 X10*6/uL (4.60-5.80); Red Cell Distribution Width 12.3 % (11.0-16.0); White Blood Count 8.7 X10*3/uL (4.8-10.8)
[2022-06-04 19:40] LABS: Appearance Urine Clear; Color Urine Yellow; Glucose Urine UA Negative (Negative); Leukocyte Esterase Urine Negative (Negative); Nitrite Urine Negative (Negative); Specific Gravity - Urine <= 1.005 (1.005-1.025); Urine Blood Negative (Negative); Urine Ketones Negative (Negative); Urine Protein Negative (Neg-Trace)
[2022-06-04 19:45] LABS: Ethanol < 10 mg/dL
[2022-06-04 19:47] LABS: Alanine Aminotransferase 20 U/L (0-40); Albumin Level 4.1 g/dL (3.5-5.0); Alkaline Phosphatase 53 U/L (39-117); Anion Gap 16 (12-20); Aspartate Amino Transferase 28 U/L (5-37); Blood Urea Nitrogen 13 mg/dL (9-16); Calcium 9.2 mg/dL (8.4-10.2); Carbon Dioxide 24 mmol/L (22-29); Chloride 108 mmol/L (96-108); Creatinine Clr Calc Pharmacy 81.4; Estimated Glomerular Filt Rate > 60; Glucose Random 87 mg/dL (60-115); Sodium 144 mmol/L (135-145); Total Protein 6.1 g/dL (6.5-8.0)
[2022-06-04 19:48] LABS: Amphetamine Screen Urine Not Detected (Not Detect); Barbiturates, Urine Not Detected (Not Detect); Benzodiazepines Screen Urine Not Detected (Not Detect); Cannabinoid Screen Urine POSITIVE (Not Detect); Cocaine Screen Urine Not Detected (Not Detect); Fentanyl, urine Not Detected (Not Detect); Opiate Screen Urine Not Detected (Not Detect); Phencyclidine Screen Urine Not Detected (Not Detect)
[2022-06-04 20:02] VITALS: BP 110/64; PULSE 74; RESP 18; TEMP 36.9; O2SAT 97
[2022-06-04] MEDS: LORazepam 1 MG TABLET 2 MG PO (21:38)
[2022-06-04] MEDS: OLANZapine 10 MG TABLET PO (21:39)
--- NOTE | 2022-06-04 22:31 | MHC.CARE ---
Pt was evaluated by the CARE Team and [facility] is an inpatient bedsearch.
--- NOTE | 2022-06-05 | ECG_ITS ---
Test Reason : check foe prolong QT Blood Pressure : / mmHG Vent. Rate : 081 BPM Atrial Rate : 081 BPM P-R Int : 138 ms QRS Dur : 140 ms QT Int : 390 ms P-R-T Axes : 056 009 023 degrees QTc Int : 453 ms Normal sinus rhythm with sinus arrhythmia Right bundle branch block Septal infarct , age undetermined Abnormal ECG No previous ECGs available Referred By: Rosalinda Verdin Electronically Signed By:Alexander Boyd
--- NOTE | 2022-06-05 05:56 | PC.NURSE ---
Patient slept through the night, no distress observed/reported, patient engaged well with care team during evaluation but got agitated, Ativan 2 mg PO and Olanzapine 10 mg po administered at 2139 with + effect, patient completed religiously preoccupied, behavior non concerning but unpredictable, med rec completed/pending provider's approval, disposition pr care team is section 12 inpatient bed search, will continue to monitor.
[2022-06-05 06:46] VITALS: BP 114/73; PULSE 93; RESP 17; TEMP 36.6; O2SAT 99
[2022-06-05] MEDS: OLANZapine 2.5 MG TABLET PO ×2 (09:34→21:13)
[2022-06-05] MEDS: buPROPion HCl XL 150 MG TAB.ER.24H PO (09:57)
--- NOTE | 2022-06-05 12:13 | PC.NURSE ---
Pt calm and cooperative throughout morning. VSS, ambulatory, speaking in full complete sentences.
[2022-06-05] MEDS: OLANZapine 5 MG TABLET PO ×2 (14:03→22:45)
--- NOTE | 2022-06-05 16:03 | PC.NURSE ---
nurse to nurse given to Serg TAYLOR on M3
[2022-06-05 17:55] VITALS: BP 161/94; PULSE 80; RESP 18; TEMP 36.4; O2SAT 99
--- NOTE | 2022-06-05 18:12 | PC.ADMIT ---
Patient is a 41 y/o sao tomean speaking male admitted to the unit at 1645 on a CV. The pt was brought to the [facility] ED after a [facility] response due to pt responding manic, religiously preoccupied, delusional and a change in mental status. Pt has had increased aggression at the home where he lives with his . The pts reports that he lost 20 lbs in a month and hasn't slept in 3 days. Pt was aggressive when he was in the ED requiring a chemical and physical restraint. Pts mood is labile with a congruent affect. Pt is grandiose with rapid pressured speech. Thoughts are tangential and disorganized. Pt becomes angry and tearful when discussing his with, he believes she placed him her because he demands that she pray . Pt is religiously preoccupied, praying on the floor several times during the admission. He denies having mental illness although he reports services at the [facility] in [place]. Pt placed on 15 minute checks for safety.
[2022-06-05] MEDS: Lithium Carbonate ER 450 MG TABLET.ER PO (21:12)
[2022-06-05] MEDS: traZODone HCL 50 MG TABLET PO ×2 (21:13→23:45)
[2022-06-05] MEDS: hydrOXYzine HCL 25 MG TABLET PO (22:03)
[2022-06-06] MEDS: LORazepam 1 MG TABLET 2 MG PO (00:33)
[2022-06-06] MEDS: Divalproex Sodium 500 MG TABLET.DR PO (00:33)
[2022-06-06 06:00] VITALS: BP 142/80; PULSE 82; RESP 16; TEMP 36.2; O2SAT 99
[2022-06-06 08:27] LABS: Estimated Average Glucose 111 mg/dL; Hemoglobin A1c % 5.5 %
[2022-06-06 08:38] LABS: Alanine Aminotransferase 25 U/L (0-40); Albumin Level 4.4 g/dL (3.5-5.0); Alkaline Phosphatase 57 U/L (39-117); Anion Gap 14 (12-20); Aspartate Amino Transferase 27 U/L (5-37); Bilirubin Total 1.3 mg/dL (0.0-1.0); Blood Urea Nitrogen 13 mg/dL (9-16); Calcium 9.4 mg/dL (8.4-10.2); Carbon Dioxide 27 mmol/L (22-29); Chloride 106 mmol/L (96-108); Cholesterol 194 mg/dL; Creatinine Clr Calc Pharmacy 66.7; Estimated Glomerular Filt Rate 57; Glucose Fasting 108 mg/dL (60-99); HDL Cholesterol 47 mg/dL; LDL Cholesterol Calculated 123 mg/dl; Potassium 4.3 mmol/L (3.3-5.1); Sodium 143 mmol/L (135-145); Total Protein 6.5 g/dL (6.5-8.0); Triglycerides 120 mg/dL
[2022-06-06] MEDS: OLANZapine 5 MG TABLET PO ×3 (08:38→20:41)
[2022-06-06] MEDS: OLANZapine 2.5 MG TABLET PO ×2 (08:38→20:40)
[2022-06-06] MEDS: Lithium Carbonate ER 450 MG TABLET.ER PO ×2 (08:38→20:40)
[2022-06-06] MEDS: hydrOXYzine HCL 25 MG TABLET PO (08:38)
[2022-06-06 09:08] LABS: Folate 14.3 ng/mL (> or = 4.0); Free T4 (Free Thyroxine) 1.31 ng/dL (0.71-1.85); Vitamin B12 555 pg/mL (200-900)
[2022-06-06 10:23] LABS: Lithium 0.27 mmol/L (0.60-1.20)
[2022-06-06] MEDS: hydrOXYzine HCL 50 MG TABLET PO ×2 (12:31→21:56)
[2022-06-06] MEDS: LORazepam 1 MG TABLET PO ×2 (13:06→20:41)
--- NOTE | 2022-06-06 17:21 | HO.PSYADMNOT ---
HPI Date of Service: 06/06/22 Chief Complaint: elinor Sources of Information: patient interviewed, chart reviewed and crisis/core team assessment reviewed HPI Subjective Notes: Dior Warning and Conditional Voluntary Medical Problems Affecting Mental Status: No Narrative: As per nursing admit note: has had increased aggression at the home where he lives with his . The pts reports that he lost 20 lbs in a month and hasn't slept in 3 days. Pt was aggressive when he was in the ED requiring a chemical and physical restraint. Pts mood is labile with a congruent affect. Pt is grandiose with rapid pressured speech. Thoughts are tangential and disorganized. Pt becomes angry and tearful when discussing his with, he believes she placed him her because he demands that she pray . Pt is religiously preoccupied, praying on the floor several times during the admission. met with patient. Discussed with Nursing. Review chart. Patient does present slightly pressured with flight of ideas. Reports that his Angelique became upset with him and had a Section 12 placed because he wanted her to understand why he wanted to read the Bible all of the time. Reports that she laughed because he was doing this so much and is now staying with her parents. Reports a 17-year-old daughter is staying with a friend. Very upset regarding his leaving I put her on a throne . has not slept in days. Reports feeling extremely happy. Also some irritability. Denies substance issues. Tox screen largely unremarkable. Reports he and his have been together for 22 years. 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 Reports being jewish and the whole family got baptized together in 2011 We did discuss medications and open to olanzapine. Reports being prescribed Zoloft, Wellbutrin, Seroquel in the past. Reports being on Zoloft for a number of years and Wellbutrin being added around 1 month ago because he felt anxious. Stop Ritalin himself as he felt more nervous. Did have difficulty recalling medications when prompted. Reported 1st admission and would like referral to psychiatrist and unclear if he has a therapist at the [facility].? Past Psychiatric History: Very unclear diagnostic history and has difficulty with giving past history and episodes. Did describe having periods of elation but unable to give clear symptoms associated. Also described. The feeling depressed but unable to give clear symptoms. Denied suicide attempts or feeling suicidal in the past. Reports being prescribed Zoloft, Wellbutrin, Seroquel in the past. Reports being on Zoloft for a number of years and Wellbutrin being added around 1 month ago because he felt anxious. Stop Ritalin himself as he felt more nervous. Did have difficulty recalling medications when prompted. Reported 1st admission and would like referral to psychiatrist however unclear if he has a prescriber and therapist at the [facility]. Medical Evaluation Reviewed: Yes [facility] Medical History No pertinent past medical history Surgical History No pertinent past surgical history Social History: appears to of left patient recently and staying with her parents. 17-year-old daughter staying with a friend. Reports he and his have been together for 22 years. 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 Reports being jewish and the whole family got baptized together in 2011 Substance History: none. Diagnostics Vital Signs (24Hr): Vital Signs - 24 hr 06/05/22 17:55 06/06/22 06:00 Temperature 97.6 F 97.2 F Pulse Rate 80 82 Respiratory Rate 18 16 Blood Pressure 161/94 H 142/80 H Pulse Oximetry 99 99 Oxygen Delivery Method Room Air BMI result Body Mass Index 27.4 Labs 06/04/22 19:24 06/06/22 07:49 Labs: Laboratory Results - last 48 hr 06/04/22 06/04/22 06/04/22 19:24 19:24 19:24 WBC 8.7 RBC 4.91 Hgb 14.7 Hct 44.0 MCV 89.6 MCH 29.9 MCHC 33.4 RDW 12.3 Plt Count 234 MPV 8.6 L Immature Gran % (Auto) 0.3 Neut % (Auto) 61.0 Lymph % (Auto) 26.8 Yell % (Auto) 10.5 Eos % (Auto) 0.8 Baso % (Auto) 0.6 Lymph # (Auto) 2.3 Yell # (Auto) 0.9 Eos # (Auto) 0.1 Baso # (Auto) 0.1 Abs Immat Gran (auto) 0.03 Absolute Neuts (auto) 5.3 Absolute Nucleated RBC 0.000 Nucleated RBC % (auto) 0.0 Sodium 144 Potassium 4.0 Chloride 108 Carbon Dioxide 24 Anion Gap 16 BUN 13 Creatinine 1.14 Estim Creat Clear Calc 81.4 Estimated GFR > 60 Random Glucose 87 Fasting Glucose Estimat Average Glucose Hemoglobin A1c % Calcium 9.2 Total Bilirubin 1.0 AST 28 ALT 20 Alkaline Phosphatase 53 Total Protein 6.1 L Albumin 4.1 Triglycerides Cholesterol LDL Cholesterol, Calc HDL Cholesterol Vitamin B12 Folate TSH Free T4 Urine Color Urine Appearance Urine pH Ur Specific [place] Urine Protein Urine Glucose (UA) Urine Ketones Urine Blood Urine Nitrite Ur Leukocyte Esterase Urine Opiates Screen Urine Fentanyl Screen Ur Barbiturates Screen Ur Phencyclidine Scrn Ur Amphetamines Screen U Benzodiazepines Scrn [place] Urine Cocaine Screen U Marijuana (THC) Screen Ethyl Alcohol < 10 06/04/22 06/04/22 06/06/22 19:24 19:25 07:49 WBC RBC Hgb Hct MCV MCH MCHC RDW Plt Count MPV Immature Gran % (Auto) Neut % (Auto) Lymph % (Auto) Yell % (Auto) Eos % (Auto) Baso % (Auto) Lymph # (Auto) Yell # (Auto) Eos # (Auto) Baso # (Auto) Abs Immat Gran (auto) Absolute Neuts (auto) Absolute Nucleated RBC Nucleated RBC % (auto) Sodium 143 Potassium 4.3 Chloride 106 Carbon Dioxide 27 Anion Gap 14 BUN 13 Creatinine 1.39 Estim Creat Clear Calc 66.7 Estimated GFR 57 Random Glucose Fasting Glucose 108 H Estimat Average Glucose Hemoglobin A1c % Calcium 9.4 Total Bilirubin 1.3 H AST 27 ALT 25 Alkaline Phosphatase 57 Total Protein 6.5 Albumin 4.4 Triglycerides 120 Cholesterol 194 LDL Cholesterol, Calc 123 HDL Cholesterol 47 Vitamin B12 555 Folate 14.3 TSH 2.20 Free T4 1.31 Urine Color Yellow Urine Appearance Clear Urine pH 6.0 Ur Specific [place] <= 1.005 Urine Protein Negative Urine Glucose (UA) Negative Urine Ketones Negative Urine Blood Negative Urine Nitrite Negative Ur Leukocyte Esterase Negative Urine Opiates Screen Not Detected Urine Fentanyl Screen Not Detected Ur Barbiturates Screen Not Detected Ur Phencyclidine Scrn Not Detected Ur Amphetamines Screen Not Detected U Benzodiazepines Scrn Not Detected [place] Urine Cocaine Screen Not Detected U Marijuana (THC) Screen POSITIVE H Ethyl Alcohol 06/06/22 06/06/22 07:49 10:10 WBC RBC Hgb Hct MCV MCH MCHC RDW Plt Count MPV Immature Gran % (Auto) Neut % (Auto) Lymph % (Auto) Yell % (Auto) Eos % (Auto) Baso % (Auto) Lymph # (Auto) Yell # (Auto) Eos # (Auto) Baso # (Auto) Abs Immat Gran (auto) Absolute Neuts (auto) Absolute Nucleated RBC Nucleated RBC % (auto) Sodium Potassium Chloride Carbon Dioxide Anion Gap BUN Creatinine Estim Creat Clear Calc Estimated GFR Random Glucose Fasting Glucose Estimat Average Glucose 111 Hemoglobin A1c % 5.5 Calcium Total Bilirubin AST ALT Alkaline Phosphatase Total Protein Albumin Triglycerides Cholesterol LDL Cholesterol, Calc HDL Cholesterol Vitamin B12 Folate TSH Free T4 Urine Color Urine Appearance Urine pH Ur Specific [place] Urine Protein Urine Glucose (UA) Urine Ketones Urine Blood Urine Nitrite Ur Leukocyte Esterase Urine Opiates Screen Urine Fentanyl Screen Ur Barbiturates Screen Ur Phencyclidine Scrn Ur Amphetamines Screen U Benzodiazepines Scrn [place] 0.27 L Urine Cocaine Screen U Marijuana (THC) Screen Ethyl Alcohol Meds/Allergies Meds Home Medications Medication Instructions Recorded Confirmed Type bupropion HCl 150 mg 24 hr tablet, 1 tab PO DAILY 12/02/21 06/04/22 History extended release sertraline 100 mg tablet 1 tab PO DAILY 12/02/21 06/04/22 History Allergies Allergies Allergy/AdvReac Type Severity Reaction Status Date / Time No Known Allergies Allergy Verified 12/01/21 20:33 [No Known Allergies*] Mental Status Exam Mental Status Exam Narrative: Pleasant. Hospital clothing. Speech is pressured. Intense staring at times. Hyper jewish. Elated at times and all others irritable. No SI. No HI. Does appear to have some paranoia and internal preoccupation. Insight and judgment limited to fair when discussing medications Assessment & Plan Assessment & Plan (1) Bipolar disorder: Status: Acute Code(s): F31.9 - Bipolar disorder, unspecified Plan presents with likely history of bipolar disorder and psychosis. Hyper jewish, impacting relationships. Some paranoia and internal preoccupation noticed. Has not slept. Is elated. Pressured speech and flight of ideas. Has agreed to olanzapine and will schedule to 0.5 mg twice daily and 5 mg at bedtime along with Ativan as needed. Patient educated on: diagnosis and medication risk/benefits Informed Consent: understands ( medications) and further education needed ( diagnosis) Reason for continued inpatient stay Substantial Risk for: inability to function Statement Statement: I have reviewed the history and physical and performed a pertinent examination on my patient. No changes have occurred unless specified. If the History and Physical was not performed prior to admission, the Hospitalist's service will be consulted for completing the admission physical. Time Spent With Patient Time: Total time managing care of this patient today ____ minutes.
[2022-06-06] MEDS: traZODone HCL 100 MG TABLET PO (20:41)
[2022-06-06 20:46] VITALS: BP 134/82; PULSE 97; RESP 16; TEMP 35.5; O2SAT 98
[2022-06-06] MEDS: traZODone HCL 50 MG TABLET PO (21:56)
[2022-06-07] MEDS: OLANZapine 5 MG TABLET PO ×3 (03:41→15:54)
[2022-06-07] MEDS: LORazepam 1 MG TABLET PO ×4 (03:41→23:02)
[2022-06-07 06:00] VITALS: BP 136/82; PULSE 98; RESP 16; TEMP 36.6; O2SAT 98
[2022-06-07] MEDS: OLANZapine 2.5 MG TABLET PO ×2 (08:47→20:26)
[2022-06-07] MEDS: Lithium Carbonate ER 450 MG TABLET.ER PO ×2 (08:47→20:25)
[2022-06-07] MEDS: hydrOXYzine HCL 50 MG TABLET PO ×3 (10:31→23:02)
--- NOTE | 2022-06-07 14:35 | P.PNPSI_ITS ---
Subjective Subjective Date of Service: 06/07/22 Reason For Visit: elinor Subjective Notes: 3 Day Interim History: met with patient. Discussed with Nursing. Three-day notice submitted. Has been adherent with scheduled olanzapine. Does appear less intense and in trusive. Was upset however earlier when he realized three-day notice would on Wednesday this week. Is utilizing as needed medications appropriately. Continues to remain hyper orthodoxy and pressured. Slept approximately 4 hours last night. Denies feeling depressed. Denies SI or HI. Feels relatively safe in the hospital. Medication Compliance: Yes Side effects from medications: No Attending Groups: Intermittent Review of Systems Acute medical concerns: No Review of Systems Review of Systems Unremarkable Mental Status Exam Mental Status Exam Narrative: Pleasant. Hospital clothing. Speech is pressured. Intense staring at times. Hyper orthodoxy. Elated at times and irritable too. No SI. No HI. Does appear to have some paranoia and internal preoccupation. Insight and judgment limited to fair when discussing medications Diagnostics Vital Signs (24Hr): Vital Signs - 24 hr 06/06/22 20:46 06/07/22 06:00 Temperature 96 F L 97.8 F Pulse Rate 97 98 Respiratory Rate 16 16 Blood Pressure 134/82 136/82 Pulse Oximetry 98 98 Oxygen Delivery Method Room Air Room Air BMI result Body Mass Index 27.4 Labs 06/04/22 19:24 06/06/22 07:49 Labs: Laboratory Results - last 48 hr 06/06/22 06/06/22 06/06/22 07:49 07:49 10:10 Sodium 143 Potassium 4.3 Chloride 106 Carbon Dioxide 27 Anion Gap 14 BUN 13 Creatinine 1.39 Estim Creat Clear Calc 66.7 Estimated GFR 57 Fasting Glucose 108 H Estimat Average Glucose 111 Hemoglobin A1c % 5.5 Calcium 9.4 Total Bilirubin 1.3 H AST 27 ALT 25 Alkaline Phosphatase 57 Total Protein 6.5 Albumin 4.4 Triglycerides 120 Cholesterol 194 LDL Cholesterol, Calc 123 HDL Cholesterol 47 Vitamin B12 555 Folate 14.3 TSH 2.20 Free T4 1.31 Atkins 0.27 L Medications Medications Current Medications Acetaminophen (Acetaminophen 325 Mg Tablet) 650 mg PO Q6H PRN PRN Reason: Headache/Pain Mild Scale (1-3) Al Hydroxide/Mg Hydroxide (Magnesium Hydrox/Alum Hydrox 30 Ml Oral.Susp) 30 ml PO Q6H PRN PRN Reason: Heartburn/Nausea Hydroxyzine HCl (Hydroxyzine Hcl 50 Mg Tablet) 50 mg PO Q6H PRN PRN Reason: Anxiety Last Admin: 06/07/22 10:31 Dose: 50 mg [place]kins Carbonate (Atkins Carbonate Er 450 Mg Tablet.Er) 450 mg PO BID [facility] Last Admin: 06/07/22 08:47 Dose: 450 mg Lorazepam (Lorazepam 1 Mg Tablet) 1 mg PO Q6H PRN PRN Reason: agitation Last Admin: 06/07/22 10:20 Dose: 1 mg Magnesium Hydroxide (Milk Of Magnesia 30 Ml Oral.Susp) 30 ml PO DAILY PRN PRN Reason: Constipation Nicotine Polacrilex (Nicotine Polacrilex 2 Mg Gum) 4 mg BUCCAL Q2H PRN PRN Reason: Nicotine Cravings Olanzapine (Olanzapine 2.5 Mg Tablet) 2.5 mg PO BID [facility] Last Admin: 06/07/22 08:47 Dose: 2.5 mg Olanzapine (Olanzapine 5 Mg Tablet) 5 mg PO Q4H PRN PRN Reason: Agitation Last Admin: 06/07/22 10:31 Dose: 5 mg Trazodone HCl (Trazodone Hcl 50 Mg Tablet) 50 mg PO BEDTIME MRX1 PRN PRN Reason: Insomnia Last Admin: 06/06/22 21:56 Dose: 50 mg Trazodone HCl (Trazodone Hcl 100 Mg Tablet) 100 mg PO BEDTIME [facility] Last Admin: 06/06/22 20:41 Dose: 100 mg Allergies Allergies Allergy/AdvReac Type Severity Reaction Status Date / Time No Known Allergies Allergy Verified 12/01/21 20:33 [No Known Allergies*] Assessment & Plan Assessment & Plan (1) Bipolar disorder: Status: Acute Code(s): F31.9 - Bipolar disorder, unspecified Plan presents with likely history of bipolar disorder and psychosis. Hyper orthodoxy, impacting relationships. Some paranoia and internal preoccupation noticed. Has not slept. Is elated. Pressured speech and flight of ideas. Has agreed to olanzapine and will schedule to 0.5 mg twice daily and 5 mg at bedtime along with Ativan as needed. 06/07/2022: Continue to encourage adherence with olanzapine and utilize as needed medications. Primary team liaise with family as needed and patient p ermits Reason for contiued inpatient stay Substantial Risk for: inability to function Time Spent With Patient Time: Total time managing care of this patient today ____ minutes.
[2022-06-07 18:00] VITALS: BP 168/90; PULSE 95; RESP 18; TEMP 36.6; O2SAT 98
[2022-06-07] MEDS: traZODone HCL 100 MG TABLET PO (20:26)
[2022-06-07] MEDS: traZODone HCL 50 MG TABLET PO (21:35)
--- NOTE | 2022-06-08 02:17 | PC.NURSE ---
Jose Manuel is noted to be visible on the unit but restless. his HR and BP were noted to be high. when this senior technical writer questioned the patient he said of course they're high were talking about intimate things. This senior technical writer was asking the patient about his level anxiety, depression he stated multiple times that he is only here because he posted that video on [email or web address] but he said it really does show you the truth about whats happening especially if you slow it down then you can really see what's happening. it's really beautiful he is perseverating about wanting to be discharged. no behavioral concerns, monitor for safety. continue plan of care
[2022-06-08] MEDS: hydrOXYzine HCL 50 MG TABLET PO ×3 (06:26→18:16)
[2022-06-08] MEDS: LORazepam 1 MG TABLET PO ×3 (06:26→23:51)
[2022-06-08] MEDS: OLANZapine 2.5 MG TABLET PO (08:53)
[2022-06-08] MEDS: Lithium Carbonate ER 450 MG TABLET.ER PO (08:53)
[2022-06-08 09:05] VITALS: BP 158/88; PULSE 85; RESP 18; TEMP 36.2; O2SAT 100
[2022-06-08] MEDS: OLANZapine 5 MG TABLET PO (12:03)
--- NOTE | 2022-06-08 15:28 | HO.PSYCHPN ---
Subjective Subjective Date of Service: 06/08/22 Reason For Visit: elinor Interim History: calm, cooperative. superficially quite well, but is clearly psychotic/delusional upon continued conversation. per staff, grandiose, manic, perseverative. eating well. very poor sleep. Mental Status Exam Mental Status Exam Narrative: Pleasant. Hospital clothing. Speech is pressured. Intense staring at times. Hyper nondenominational. Elated at times and irritable too. No SI. No HI. Does appear to have some paranoia and internal preoccupation. Insight and judgment limited to fair when discussing medications Diagnostics Vital Signs (24Hr): Vital Signs - 24 hr 06/07/22 18:00 06/08/22 09:05 Temperature 97.8 F 97.2 F Pulse Rate 95 85 Respiratory Rate 18 18 Blood Pressure 168/90 H 158/88 H Pulse Oximetry 98 100 Oxygen Delivery Method Room Air Room Air BMI result Body Mass Index 27.4 Labs 06/04/22 19:24 06/06/22 07:49 Medications Medications Current Medications Acetaminophen (Acetaminophen 325 Mg Tablet) 650 mg PO Q6H PRN PRN Reason: Headache/Pain Mild Scale (1-3) Al Hydroxide/Mg Hydroxide (Magnesium Hydrox/Alum Hydrox 30 Ml Oral.Susp) 30 ml PO Q6H PRN PRN Reason: Heartburn/Nausea Hydroxyzine HCl (Hydroxyzine Hcl 50 Mg Tablet) 50 mg PO Q6H PRN PRN Reason: Anxiety Last Admin: 06/08/22 12:04 Dose: 50 mg [place] Carbonate ([place] Carbonate Er 450 Mg Tablet.Er) 450 mg PO BID [facility] Last Admin: 06/08/22 08:53 Dose: 450 mg Lorazepam (Lorazepam 1 Mg Tablet) 1 mg PO Q6H PRN PRN Reason: agitation Last Admin: 06/08/22 12:57 Dose: 1 mg Magnesium Hydroxide (Milk Of Magnesia 30 Ml Oral.Susp) 30 ml PO DAILY PRN PRN Reason: Constipation Nicotine Polacrilex (Nicotine Polacrilex 2 Mg Gum) 4 mg BUCCAL Q2H PRN PRN Reason: Nicotine Cravings Olanzapine (Olanzapine 2.5 Mg Tablet) 2.5 mg PO BID [facility] Last Admin: 06/08/22 08:53 Dose: 2.5 mg Olanzapine (Olanzapine 5 Mg Tablet) 5 mg PO Q4H PRN PRN Reason: Agitation Last Admin: 06/08/22 12:03 Dose: 5 mg Trazodone HCl (Trazodone Hcl 50 Mg Tablet) 50 mg PO BEDTIME MRX1 PRN PRN Reason: Insomnia Last Admin: 06/07/22 21:35 Dose: 50 mg Trazodone HCl (Trazodone Hcl 100 Mg Tablet) 100 mg PO BEDTIME [facility] Last Admin: 06/07/22 20:26 Dose: 100 mg Allergies Allergies Allergy/AdvReac Type Severity Reaction Status Date / Time No Known Allergies Allergy Verified 12/01/21 20:33 [No Known Allergies*] Assessment & Plan Assessment & Plan (1) Bipolar disorder: Status: Acute Code(s): F31.9 - Bipolar disorder, unspecified Plan presents with likely history of bipolar disorder and psychosis. Hyper nondenominational, impacting relationships. Some paranoia and internal preoccupation noticed. Has not slept. Is elated. Pressured speech and flight of ideas. Has agreed to olanzapine and will schedule to 0.5 mg twice daily and 5 mg at bedtime along with Ativan as needed. 06/07: Continue to encourage adherence with olanzapine and utilize as needed medications. Primary team liaise with family as needed and patient permits. 06/08: manic. schedule zyprexa 15 at HS and increase lithium to 600 BID. Reason for contiued inpatient stay Substantial Risk for: inability to function and rapid decompensation Time Spent With Patient Time: Total time managing care of this patient today _35___ minutes.
[2022-06-08 20:45] VITALS: BP 156/94; PULSE 110; RESP 18; TEMP 36.6; O2SAT 97
[2022-06-08] MEDS: traZODone HCL 50 MG TABLET PO (21:11)
[2022-06-08] MEDS: Lithium Carbonate ER 300 MG TABLET.ER 600 MG PO (21:12)
[2022-06-08] MEDS: OLANZapine 7.5 MG TABLET 15 MG PO (21:12)
[2022-06-09] MEDS: hydrOXYzine HCL 50 MG TABLET PO ×2 (00:52→10:08)
[2022-06-09] MEDS: OLANZapine 5 MG TABLET PO ×2 (00:52→10:08)
--- NOTE | 2022-06-09 02:12 | PC.NURSE ---
Jose Manuel is noted to be visible on the unit he is pleasant, cooperative and social with select peers. he requested his HS meds to be given as early as possible He was given a 50mg Trazodone at 2109 and c/o continues insomnia at 2349. at that time he received 1mg of Ativan. he continued to c/o insomnia and was given PRN atarax and Zyprexa. at that time this bid writer reviewed relaxation techniques with the patient. He has rested in apparent comfort since that time. no behavioral concerns, monitor for safety, continue plan of care
[2022-06-09] MEDS: OLANZapine 2.5 MG TABLET PO (08:19)
[2022-06-09] MEDS: Lithium Carbonate ER 300 MG TABLET.ER 600 MG PO ×2 (08:19→21:36)
[2022-06-09 08:40] VITALS: BP 163/101; PULSE 99; RESP 18; TEMP 36.4; O2SAT 99
[2022-06-09] MEDS: LORazepam 1 MG TABLET PO ×2 (09:21→15:35)
[2022-06-09 12:00] VITALS: BP 155/83; PULSE 91; RESP 20; O2SAT 98
--- NOTE | 2022-06-09 16:57 | HO.PSYCHPN ---
Subjective Subjective Date of Service: 06/09/22 Reason For Visit: elinor Interim History: calm, cooperative. less pressured, less focussed on paranoid delusions. more open to new information and topics. agrees to sign in on a CV. c/o insomnia, ativan 2 mg at HS added. per staff, 3-day up tomorrow. denies SI/HI/AVH. anx 7, dep 9. slept OK last NOC. Mental Status Exam Mental Status Exam Narrative: Pleasant. street clothing. Speech is less pressured. Hyper advent. mood more even and less euphoric. No SI, HI expressed. Does appear to have some paranoia and internal preoccupation. Insight and judgment fair when discussing medications Diagnostics Vital Signs (24Hr): Vital Signs - 24 hr 06/08/22 20:45 06/09/22 08:40 06/09/22 12:00 Temperature 97.8 F 97.5 F Pulse Rate 110 H 99 91 Respiratory Rate 18 18 20 Blood Pressure 156/94 H 163/101 H 155/83 H Pulse Oximetry 97 99 98 Oxygen Delivery Method Room Air Room Air Room Air BMI result Body Mass Index 27.4 Labs 06/04/22 19:24 06/06/22 07:49 Medications Medications Current Medications Acetaminophen (Acetaminophen 325 Mg Tablet) 650 mg PO Q6H PRN PRN Reason: Headache/Pain Mild Scale (1-3) Al Hydroxide/Mg Hydroxide (Magnesium Hydrox/Alum Hydrox 30 Ml Oral.Susp) 30 ml PO Q6H PRN PRN Reason: Heartburn/Nausea Hydroxyzine HCl (Hydroxyzine Hcl 50 Mg Tablet) 50 mg PO Q6H PRN PRN Reason: Anxiety Last Admin: 06/09/22 10:08 Dose: 50 mg [place] Carbonate ([place] Carbonate Er 300 Mg Tablet.Er) 600 mg PO BID [facility] Last Admin: 06/09/22 08:19 Dose: 600 mg Lorazepam (Lorazepam 1 Mg Tablet) 1 mg PO Q6H PRN PRN Reason: agitation Last Admin: 06/09/22 15:35 Dose: 1 mg Lorazepam (Lorazepam 1 Mg Tablet) 2 mg PO BEDTIME [facility] Magnesium Hydroxide (Milk Of Magnesia 30 Ml Oral.Susp) 30 ml PO DAILY PRN PRN Reason: Constipation Nicotine Polacrilex (Nicotine Polacrilex 2 Mg Gum) 4 mg BUCCAL Q2H PRN PRN Reason: Nicotine Cravings Olanzapine (Olanzapine 5 Mg Tablet) 5 mg PO Q4H PRN PRN Reason: Agitation Last Admin: 06/09/22 10:08 Dose: 5 mg Olanzapine (Olanzapine 2.5 Mg Tablet) 2.5 mg PO DAILY [facility] Last Admin: 06/09/22 08:19 Dose: 2.5 mg Olanzapine (Olanzapine 7.5 Mg Tablet) 15 mg PO BEDTIME [facility] Last Admin: 06/08/22 21:12 Dose: 15 mg Trazodone HCl (Trazodone Hcl 50 Mg Tablet) 50 mg PO BEDTIME PRN PRN Reason: insomnia Last Admin: 06/08/22 21:11 Dose: 50 mg Allergies Allergies Allergy/AdvReac Type Severity Reaction Status Date / Time No Known Allergies Allergy Verified 12/01/21 20:33 [No Known Allergies*] Assessment & Plan Assessment & Plan (1) Bipolar disorder: Status: Acute Code(s): F31.9 - Bipolar disorder, unspecified Plan presents with likely history of bipolar disorder and psychosis. Hyper advent, impacting relationships. Some paranoia and internal preoccupation noticed. Has not slept. Is elated. Pressured speech and flight of ideas. Has agreed to olanzapine and will schedule to 0.5 mg twice daily and 5 mg at bedtime along with Ativan as needed. 06/07: Continue to encourage adherence with olanzapine and utilize as needed medications. Primary team liaise with family as needed and patient permits. 06/08: manic. schedule zyprexa 15 at HS and increase lithium to 600 BID. 06/09: less manic today. sleep remains an issue. start ativan 2 mg PO QHS. Reason for contiued inpatient stay Substantial Risk for: harm to others, inability to function and rapid decompensation Time Spent With Patient Time: Total time managing care of this patient today _25___ minutes.
[2022-06-09 18:35] VITALS: BP 168/87; PULSE 90; RESP 18; TEMP 36.3; O2SAT 99
[2022-06-09] MEDS: traZODone HCL 50 MG TABLET PO (21:36)
[2022-06-09] MEDS: LORazepam 1 MG TABLET 2 MG PO (21:36)
[2022-06-09] MEDS: OLANZapine 7.5 MG TABLET 15 MG PO (21:36)
[2022-06-10] MEDS: LORazepam 1 MG TABLET PO ×3 (01:23→18:19)
[2022-06-10] MEDS: OLANZapine 5 MG TABLET PO (01:23)
[2022-06-10] MEDS: hydrOXYzine HCL 50 MG TABLET PO ×3 (05:10→20:14)
[2022-06-10 08:54] LABS: Lithium 0.42 mmol/L (0.60-1.20)
[2022-06-10 09:31] VITALS: BP 155/96; PULSE 94; RESP 18; TEMP 36.6; O2SAT 99
[2022-06-10] MEDS: Lithium Carbonate ER 300 MG TABLET.ER 600 MG PO ×2 (09:33→22:20)
[2022-06-10] MEDS: OLANZapine 2.5 MG TABLET PO (09:34)
[2022-06-10 13:25] VITALS: BP 159/92; PULSE 95; O2SAT 99
--- NOTE | 2022-06-10 15:28 | HO.PSYCHPN ---
Subjective Subjective Date of Service: 06/10/22 Reason For Visit: elinor Interim History: pt more irritable today, physiologically aroused when told he will not be discharged today (facial twitching). seen with FRANCOISE peacock. c/o insomnia, adds PRN of ativan 2 mg at HS and also increases zyprexa dosing to 20 mg at HS. pt denies akathisia Sx. per staff, 3-day up 06/12. alert, visible, variable moods. denies dep. denies AVH. eating well. poor sleep. slept after 0130 with PRNS. Mental Status Exam Mental Status Exam Narrative: irritable. street clothing. Speech is relatively pressured. mood irrtiable/angry.. No SI, HI expressed. Insight and judgment fair when discussing medications, poor re mental illness. Diagnostics Vital Signs (24Hr): Vital Signs - 24 hr 06/09/22 18:35 06/10/22 09:31 06/10/22 13:25 Temperature 97.3 F 98 F Pulse Rate 90 94 95 Respiratory Rate 18 18 Blood Pressure 168/87 H 155/96 H 159/92 H Pulse Oximetry 99 99 99 Oxygen Delivery Method Room Air Room Air Room Air BMI result Body Mass Index 27.4 Labs 06/04/22 19:24 06/06/22 07:49 Labs: Laboratory Results - last 48 hr 06/10/22 08:35 [place] 0.42 L Medications Medications Current Medications Acetaminophen (Acetaminophen 325 Mg Tablet) 650 mg PO Q6H PRN PRN Reason: Headache/Pain Mild Scale (1-3) Al Hydroxide/Mg Hydroxide (Magnesium Hydrox/Alum Hydrox 30 Ml Oral.Susp) 30 ml PO Q6H PRN PRN Reason: Heartburn/Nausea Hydroxyzine HCl (Hydroxyzine Hcl 50 Mg Tablet) 50 mg PO Q6H PRN PRN Reason: Anxiety Last Admin: 06/10/22 13:24 Dose: 50 mg [place] Carbonate ([place] Carbonate Er 300 Mg Tablet.Er) 600 mg PO BID KARINA Last Admin: 06/10/22 09:33 Dose: 600 mg Lorazepam (Lorazepam 1 Mg Tablet) 1 mg PO Q6H PRN PRN Reason: agitation Last Admin: 06/10/22 10:11 Dose: 1 mg Lorazepam (Lorazepam 1 Mg Tablet) 2 mg PO BEDTIME KARINA Last Admin: 06/09/22 21:36 Dose: 2 mg Lorazepam (Lorazepam 1 Mg Tablet) 2 mg PO BEDTIME PRN PRN Reason: insomnia Magnesium Hydroxide (Milk Of Magnesia 30 Ml Oral.Susp) 30 ml PO DAILY PRN PRN Reason: Constipation Nicotine Polacrilex (Nicotine Polacrilex 2 Mg Gum) 4 mg BUCCAL Q2H PRN PRN Reason: Nicotine Cravings Olanzapine (Olanzapine 5 Mg Tablet) 5 mg PO Q4H PRN PRN Reason: Agitation Last Admin: 06/10/22 01:23 Dose: 5 mg Olanzapine (Olanzapine 2.5 Mg Tablet) 2.5 mg PO DAILY KARINA Last Admin: 06/10/22 09:34 Dose: 2.5 mg Olanzapine (Olanzapine 10 Mg Tablet) 20 mg PO BEDTIME KARINA Trazodone HCl (Trazodone Hcl 50 Mg Tablet) 50 mg PO BEDTIME PRN PRN Reason: insomnia Last Admin: 06/09/22 21:36 Dose: 50 mg Allergies Allergies Allergy/AdvReac Type Severity Reaction Status Date / Time No Known Allergies Allergy Verified 12/01/21 20:33 [No Known Allergies*] Assessment & Plan Assessment & Plan (1) Bipolar disorder: Status: Acute Code(s): F31.9 - Bipolar disorder, unspecified Plan presents with likely history of bipolar disorder and psychosis. Hyper quaker, impacting relationships. Some paranoia and internal preoccupation noticed. Has not slept. Is elated. Pressured speech and flight of ideas. Has agreed to olanzapine and will schedule to 0.5 mg twice daily and 5 mg at bedtime along with Ativan as needed. 06/07: Continue to encourage adherence with olanzapine and utilize as needed medications. Primary team liaise with family as needed and patient permits. 06/08: manic. schedule zyprexa 15 at HS and increase lithium to 600 BID. 06/09: less manic today. sleep remains an issue. start ativan 2 mg PO QHS. 06/10: more irritable/labile today. sleep still a problem. add ativan 2 mg QHS PRN, increase HS zyprexa from 15 to 20 mg. signed in on a CV yesterday, then signed 3-day notice, which is up 06/12. Reason for contiued inpatient stay Substantial Risk for: harm to self, harm to others, inability to function and rapid decompensation Time Spent With Patient Time: Total time managing care of this patient today __35__ minutes.
[2022-06-10 21:00] VITALS: BP 143/92; PULSE 106; RESP 16; TEMP 36.6; O2SAT 97
[2022-06-10] MEDS: OLANZapine 10 MG TABLET 20 MG PO (22:21)
[2022-06-10] MEDS: LORazepam 1 MG TABLET 2 MG PO (22:21)
[2022-06-10] MEDS: traZODone HCL 50 MG TABLET PO (22:21)
[2022-06-11] MEDS: LORazepam 1 MG TABLET PO ×2 (04:00→12:05)
[2022-06-11 07:00] VITALS: BMI 28.0
[2022-06-11 09:03] VITALS: BP 141/87; PULSE 98; RESP 20; TEMP 36.3; O2SAT 97
[2022-06-11] MEDS: hydrOXYzine HCL 50 MG TABLET PO ×2 (09:05→16:38)
[2022-06-11] MEDS: OLANZapine 2.5 MG TABLET PO (09:05)
[2022-06-11] MEDS: Lithium Carbonate ER 300 MG TABLET.ER 600 MG PO ×2 (09:05→21:06)
--- NOTE | 2022-06-11 15:31 | P.PNPSI_ITS ---
Subjective Subjective Date of Service: 06/11/22 Reason For Visit: elinor Interim History: seen with FRANCOISE peacock. calm, cooperative. feels he slept better last night. less irritable/labile than yesterday. asking to DC today, told perhaps sometime next week would be better. better able to accept the information today, although does develop the face twitch again. encouraged to rescind 3-day notice, which he does today. per staff, talking about buying a multi-family house. eating well. poor sleep. Mental Status Exam Mental Status Exam Narrative: street clothing. Speech is less pressured. mood mod irritable. No SI, HI expressed. Insight and judgment fair when discussing medications, poor re mental illness. Diagnostics Vital Signs (24Hr): Vital Signs - 24 hr 06/10/22 21:00 06/11/22 09:03 Temperature 98 F 97.4 F Pulse Rate 106 H 98 Respiratory Rate 16 20 Blood Pressure 143/92 H 141/87 H Pulse Oximetry 97 97 Oxygen Delivery Method Room Air Room Air BMI result Body Mass Index 28.0 Labs 06/04/22 19:24 06/06/22 07:49 Labs: Laboratory Results - last 48 hr 06/10/22 08:35 [place] 0.42 L Medications Medications Current Medications Acetaminophen (Acetaminophen 325 Mg Tablet) 650 mg PO Q6H PRN PRN Reason: Headache/Pain Mild Scale (1-3) Al Hydroxide/Mg Hydroxide (Magnesium Hydrox/Alum Hydrox 30 Ml Oral.Susp) 30 ml PO Q6H PRN PRN Reason: Heartburn/Nausea Hydroxyzine HCl (Hydroxyzine Hcl 50 Mg Tablet) 50 mg PO Q6H PRN PRN Reason: Anxiety Last Admin: 06/11/22 09:05 Dose: 50 mg [place] Carbonate ([place] Carbonate Er 300 Mg Tablet.Er) 600 mg PO BID KARINA Last Admin: 06/11/22 09:05 Dose: 600 mg Lorazepam (Lorazepam 1 Mg Tablet) 2 mg PO BEDTIME KARINA Last Admin: 06/10/22 22:21 Dose: 2 mg Lorazepam (Lorazepam 1 Mg Tablet) 2 mg PO BEDTIME PRN PRN Reason: insomnia Magnesium Hydroxide (Milk Of Magnesia 30 Ml Oral.Susp) 30 ml PO DAILY PRN PRN Reason: Constipation Nicotine Polacrilex (Nicotine Polacrilex 2 Mg Gum) 4 mg BUCCAL Q2H PRN PRN Reason: Nicotine Cravings Olanzapine (Olanzapine 5 Mg Tablet) 5 mg PO Q4H PRN PRN Reason: Agitation Last Admin: 06/10/22 01:23 Dose: 5 mg Olanzapine (Olanzapine 2.5 Mg Tablet) 2.5 mg PO DAILY KARINA Last Admin: 06/11/22 09:05 Dose: 2.5 mg Olanzapine (Olanzapine 10 Mg Tablet) 20 mg PO BEDTIME KARINA Last Admin: 06/10/22 22:21 Dose: 20 mg Trazodone HCl (Trazodone Hcl 50 Mg Tablet) 50 mg PO BEDTIME PRN PRN Reason: insomnia Last Admin: 06/10/22 22:21 Dose: 50 mg Allergies Allergies Allergy/AdvReac Type Severity Reaction Status Date / Time No Known Allergies Allergy Verified 12/01/21 20:33 [No Known Allergies*] Assessment & Plan Assessment & Plan (1) Bipolar disorder: Status: Acute Code(s): F31.9 - Bipolar disorder, unspecified Plan presents with likely history of bipolar disorder and psychosis. Hyper bahai, impacting relationships. Some paranoia and internal preoccupation no ticed. Has not slept. Is elated. Pressured speech and flight of ideas. Has agreed to olanzapine and will schedule to 0.5 mg twice daily and 5 mg at bedtime along with Ativan as needed. 06/07: Continue to encourage adherence with olanzapine and utilize as needed medications. Primary team liaise with family as needed and patient permits. 06/08: manic. schedule zyprexa 15 at HS and increase lithium to 600 BID. 06/09: less manic today. sleep remains an issue. start ativan 2 mg PO QHS. 06/10: more irritable/labile today. sleep still a problem. add ativan 2 mg QHS PRN, increase HS zyprexa from 15 to 20 mg. signed in on a CV yesterday, then signed 3-day notice, which is up 06/12. 06/11: 3-day notice rescinded again. less irritable/labile than yesterday. continue current mgmt. check lithium level wednesday evening. Reason for contiued inpatient stay Substantial Risk for: harm to others, inability to function and rapid dec ompensation Time Spent With Patient Time: Total time managing care of this patient today __35__ minutes.
--- NOTE | 2022-06-11 16:20 | PC.NURSE ---
Patient rescinded 3 day note and submitted new 3 day note which will be up on 06/17.
[2022-06-11 19:55] VITALS: BP 185/93; PULSE 106; RESP 18; TEMP 36.7; O2SAT 97
[2022-06-11] MEDS: OLANZapine 5 MG TABLET PO (19:59)
[2022-06-11] MEDS: OLANZapine 10 MG TABLET 20 MG PO (21:06)
[2022-06-11] MEDS: LORazepam 1 MG TABLET 2 MG PO (21:06)
[2022-06-11] MEDS: traZODone HCL 50 MG TABLET PO (21:06)
[2022-06-12] MEDS: LORazepam 1 MG TABLET 2 MG PO ×2 (00:35→21:27)
[2022-06-12] MEDS: traZODone HCL 50 MG TABLET PO (00:35)
[2022-06-12 08:00] VITALS: BP 157/85; PULSE 104; RESP 18; TEMP 36.4; O2SAT 98
[2022-06-12] MEDS: Lithium Carbonate ER 300 MG TABLET.ER 600 MG PO ×2 (08:21→21:28)
[2022-06-12] MEDS: OLANZapine 2.5 MG TABLET PO (08:22)
[2022-06-12] MEDS: OLANZapine 5 MG TABLET PO (12:15)
[2022-06-12] MEDS: hydrOXYzine HCL 50 MG TABLET PO ×2 (13:22→21:28)
[2022-06-12] MEDS: OLANZapine 10 MG TABLET 20 MG PO ×2 (14:38→21:28)
--- NOTE | 2022-06-12 15:17 | HO.PSYCHPN ---
Subjective Subjective Date of Service: 06/12/22 Reason For Visit: elinor Subjective Notes: Conditional Voluntary and 3 Day Interim History: Pt reports that he continues to wonder what the video of that flashing light was. He continues to report that he thinks this was a sign from God telling him that the world will not end due to Putin or Trump. He reports it has been difficult to explain to his what he thinks he is going through. He reports he notes that he is sleeping better and resting but hopes to go home soon. He denies SI/HI. He has been requesting prn olanzapine- reports help him calm down. He still exercising while on the unit. No VH/AH. but continues to have congregation delusions. Review of Systems Review of Systems Unremarkable Yes Unobtainable due to mental condition Mental Status Exam Mental Status Exam Narrative: street clothing. Speech is less pressured. mood mod irritable. No SI, HI expressed. Insight and judgment fair when discussing medications, poor re mental illness. Diagnostics Vital Signs (24Hr): Vital Signs - 24 hr 06/11/22 19:55 06/12/22 08:00 Temperature 98.0 F 97.5 F Pulse Rate 106 H 104 H Respiratory Rate 18 18 Blood Pressure 185/93 H 157/85 H Pulse Oximetry 97 98 Oxygen Delivery Method Room Air Room Air BMI result Body Mass Index 28.0 Labs 06/04/22 19:24 06/06/22 07:49 Medications Medications Current Medications Acetaminophen (Acetaminophen 325 Mg Tablet) 650 mg PO Q6H PRN PRN Reason: Headache/Pain Mild Scale (1-3) Al Hydroxide/Mg Hydroxide (Magnesium Hydrox/Alum Hydrox 30 Ml Oral.Susp) 30 ml PO Q6H PRN PRN Reason: Heartburn/Nausea Hydroxyzine HCl (Hydroxyzine Hcl 50 Mg Tablet) 50 mg PO Q6H PRN PRN Reason: Anxiety Last Admin: 06/12/22 13:22 Dose: 50 mg [place] Carbonate ([place] Carbonate Er 300 Mg Tablet.Er) 600 mg PO BID KARINA Last Admin: 06/12/22 08:21 Dose: 600 mg Lorazepam (Lorazepam 1 Mg Tablet) 2 mg PO BEDTIME KARINA Last Admin: 06/11/22 21:06 Dose: 2 mg Lorazepam (Lorazepam 1 Mg Tablet) 2 mg PO BEDTIME PRN PRN Reason: insomnia Last Admin: 06/12/22 00:35 Dose: 2 mg [place] Hydroxide (Milk Of Magnesia 30 Ml Oral.Susp) 30 ml PO DAILY PRN PRN Reason: Constipation Nicotine Polacrilex (Nicotine Polacrilex 2 Mg Gum) 4 mg BUCCAL Q2H PRN PRN Reason: Nicotine Cravings Olanzapine (Olanzapine 5 Mg Tablet) 5 mg PO Q4H PRN PRN Reason: Agitation Last Admin: 06/12/22 12:15 Dose: 5 mg Olanzapine (Olanzapine 2.5 Mg Tablet) 2.5 mg PO DAILY KARINA Last Admin: 06/12/22 08:22 Dose: 2.5 mg Olanzapine (Olanzapine 10 Mg Tablet) 20 mg PO BEDTIME KARINA Last Admin: 06/11/22 21:06 Dose: 20 mg Trazodone HCl (Trazodone Hcl 50 Mg Tablet) 50 mg PO BEDTIME PRN PRN Reason: insomnia Last Admin: 06/12/22 00:35 Dose: 50 mg Allergies Allergies Allergy/AdvReac Type Severity Reaction Status Date / Time No Known Allergies Allergy Verified 12/01/21 20:33 [No Known Allergies*] Assessment & Plan Assessment & Plan (1) Bipolar disorder: Status: Acute Code(s): F31.9 - Bipolar disorder, unspecified Plan presents with likely history of bipolar disorder and psychosis. Hyper congregation, impacting relationships. Some paranoia and internal preoccupation noticed. Has not slept. Is elated. Pressured speech and flight of ideas. Has agreed to olanzapine and will schedule to 0.5 mg twice daily and 5 mg at bedtime along with Ativan as needed. 06/07: Continue to encourage adherence with olanzapine and utilize as needed medications. Primary team liaise with family as needed and patient permits. 06/08: manic. schedule zyprexa 15 at HS and increase lithium to 600 BID. 06/09: less manic today. sleep remains an issue. start ativan 2 mg PO QHS. 06/10: more irritable/labile today. sleep still a problem. add ativan 2 mg QHS PRN, increase HS zyprexa from 15 to 20 mg. signed in on a CV yesterday, then signed 3-day notice, which is up 06/12. 06/11: 3-day notice rescinded again. less irritable/labile than yesterday. continue current mgmt. check lithium level wednesday evening. 06/12 continue tx. Olanzapine 10mg po q6h, prn agitation, restlessness. continue lithium, will recheck lithium prior to dc along with TSH and CMP. he does report increase thirst, and urination. Reason for continued inpatient stay Substantial Risk for: inability to function Time Spent With Patient Time: Total time managing care of this patient today ____ minutes.
[2022-06-12] MEDS: LORazepam 1 MG TABLET PO (18:48)
[2022-06-12 20:27] VITALS: BP 139/83; PULSE 101; RESP 18; TEMP 36.4; O2SAT 98
[2022-06-12] MEDS: traZODone HCL 100 MG TABLET PO (21:28)
[2022-06-13] MEDS: traZODone HCL 100 MG TABLET PO (01:10)
[2022-06-13] MEDS: LORazepam 1 MG TABLET PO ×3 (01:10→18:44)
[2022-06-13] MEDS: OLANZapine 5 MG TABLET PO ×2 (06:16→13:59)
[2022-06-13] MEDS: Lithium Carbonate ER 300 MG TABLET.ER 600 MG PO ×2 (08:29→20:47)
[2022-06-13] MEDS: OLANZapine 2.5 MG TABLET PO (08:29)
[2022-06-13 10:40] VITALS: BP 161/94; PULSE 109; RESP 18; TEMP 36.4; O2SAT 99
[2022-06-13] MEDS: hydrOXYzine HCL 50 MG TABLET PO (13:59)
--- NOTE | 2022-06-13 18:54 | HO.PSYCHPN ---
Subjective Subjective Date of Service: 06/13/22 Reason For Visit: elinor Interim History: Patient seen. Chart reviewed. Case discussed with RN. Focused on wanting discharge. Worried that he has a lot to do before he is scheduled to go to [place]. Wants to get the house ready to sell. Accepting that divorce is happening and feels that he will be going to stay with supportive family in [place]. Medication Compliance: Yes Side effects from medications: No Attending Groups: Intermittent Mental Status Exam Mental Status Exam Patient Appearance: Well Grooomed Level of Consciousness: Alert Patient Behavior: Appropriate, Anxious and Good Eye Contact Mood Description: Calm Affect Description: Anxious Patient Cognition Impaired: No Ability to Follow Directions: Good Speech Pattern: Clear Memory Description: Intact Hallucinations: None Delusions: Not Present Thought Process: Linear Thought Content: positive for Linear Depressive Symptoms: Increased Anxiety and Difficulty Sleeping Judgement: Fair Diagnostics Vital Signs (24Hr): Vital Signs - 24 hr 06/12/22 20:27 06/13/22 10:40 Temperature 97.6 F 97.6 F Pulse Rate 101 H 109 H Respiratory Rate 18 18 Blood Pressure 139/83 161/94 H Pulse Oximetry 98 99 Oxygen Delivery Method Room Air Room Air BMI result Body Mass Index 28.0 Labs 06/04/22 19:24 06/06/22 07:49 Medications Medications Current Medications Acetaminophen (Acetaminophen 325 Mg Tablet) 650 mg PO Q6H PRN PRN Reason: Headache/Pain Mild Scale (1-3) Al Hydroxide/Mg Hydroxide (Magnesium Hydrox/Alum Hydrox 30 Ml Oral.Susp) 30 ml PO Q6H PRN PRN Reason: Heartburn/Nausea Hydroxyzine HCl (Hydroxyzine Hcl 50 Mg Tablet) 50 mg PO Q6H PRN PRN Reason: Anxiety Last Admin: 06/13/22 13:59 Dose: 50 mg [place] Carbonate ([place] Carbonate Er 300 Mg Tablet.Er) 600 mg PO BID KARINA Last Admin: 06/13/22 08:29 Dose: 600 mg Lorazepam (Lorazepam 1 Mg Tablet) 2 mg PO BEDTIME KARINA Last Admin: 06/12/22 21:27 Dose: 2 mg Lorazepam (Lorazepam 1 Mg Tablet) 1 mg PO Q6H PRN PRN Reason: agitation/sleep Last Admin: 06/13/22 18:44 Dose: 1 mg [place] Hydroxide (Milk Of Magnesia 30 Ml Oral.Susp) 30 ml PO DAILY PRN PRN Reason: Constipation Nicotine Polacrilex (Nicotine Polacrilex 2 Mg Gum) 4 mg BUCCAL Q2H PRN PRN Reason: Nicotine Cravings Olanzapine (Olanzapine 5 Mg Tablet) 5 mg PO Q4H PRN PRN Reason: Agitation Last Admin: 06/13/22 13:59 Dose: 5 mg Olanzapine (Olanzapine 2.5 Mg Tablet) 2.5 mg PO DAILY [facility] Last Admin: 06/13/22 08:29 Dose: 2.5 mg Olanzapine (Olanzapine 10 Mg Tablet) 20 mg PO BEDTIME KARINA Last Admin: 06/12/22 21:28 Dose: 20 mg Olanzapine (Olanzapine Odt 10 Mg Tab.Rapdis) 10 mg TRANSLINGU Q6H PRN PRN Reason: agitation Trazodone HCl (Trazodone Hcl 100 Mg Tablet) 100 mg PO BEDTIME PRN PRN Reason: insomnia Last Admin: 06/13/22 01:10 Dose: 100 mg Allergies Allergies Allergy/AdvReac Type Severity Reaction Status Date / Time No Known Allergies Allergy Verified 12/01/21 20:33 [No Known Allergies*] Assessment & Plan Assessment & Plan (1) Bipolar disorder: Status: Acute Code(s): F31.9 - Bipolar disorder, unspecified Assessment and Plan: 06/13:no med changes Plan presents with likely history of bipolar disorder and psychosis. Hyper bahai, impacting relationships. Some paranoia and internal preoccupation noticed. Has not slept. Is elated. Pressured speech and flight of ideas. Has agreed to olanzapine and will schedule to 0.5 mg twice daily and 5 mg at bedtime along with Ativan as needed. 06/07: Continue to encourage adherence with olanzapine and utilize as needed medications. Primary team liaise with family as needed and patient permits. 06/08: manic. schedule zyprexa 15 at HS and increase lithium to 600 BID. 06/09: less manic today. sleep remains an issue. start ativan 2 mg PO QHS. 06/10: more irritable/labile today. sleep still a problem. add ativan 2 mg QHS PRN, increase HS zyprexa from 15 to 20 mg. signed in on a CV yesterday, then signed 3-day notice, which is up 06/12. 06/11: 3-day notice rescinded again. less irritable/labile than yesterday. continue current mgmt. check lithium level wednesday evening. 06/12 continue tx. Olanzapine 10mg po q6h, prn agitation, restlessness. continue lithium, will recheck lithium prior to dc along with TSH and CMP. he does report increase thirst, and urination. Reason for continued inpatient stay Substantial Risk for: rapid decompensation Time Spent With Patient Time: Total time managing care of this patient today ____ minutes.
[2022-06-13 20:15] VITALS: BP 158/93; PULSE 102; RESP 18; TEMP 36.2; O2SAT 96
[2022-06-13] MEDS: OLANZapine 10 MG TABLET 20 MG PO (20:46)
[2022-06-13] MEDS: LORazepam 1 MG TABLET 2 MG PO (20:47)
[2022-06-14] MEDS: OLANZapine ODT 10 MG TAB.RAPDIS TRANSLINGU (00:50)
[2022-06-14] MEDS: traZODone HCL 100 MG TABLET PO ×2 (00:51→22:44)
--- NOTE | 2022-06-14 04:29 | PC.NURSE ---
Jose Manuel is noted to be visible on the milieu during the early evening. He has fair insight and is future focused he requested his HS medications early at 00:50 the patient c/o anxiety and insomnia and received Zyprexa and trazodone with fair effect. patient was able to sleep in apparent comfort since. monitor for safety, continue plan of care
[2022-06-14] MEDS: OLANZapine 5 MG TABLET PO ×2 (06:54→16:20)
[2022-06-14] MEDS: Lithium Carbonate ER 300 MG TABLET.ER 600 MG PO ×2 (08:54→22:44)
[2022-06-14] MEDS: OLANZapine 2.5 MG TABLET PO (08:54)
[2022-06-14 08:59] VITALS: BP 151/88; PULSE 104; RESP 18; TEMP 36.6; O2SAT 97
[2022-06-14] MEDS: LORazepam 1 MG TABLET PO ×2 (09:36→16:20)
[2022-06-14] MEDS: hydrOXYzine HCL 50 MG TABLET PO (13:50)
--- NOTE | 2022-06-14 13:55 | HO.PSYCHPN ---
Subjective Subjective Date of Service: 06/14/22 Reason For Visit: elinor Subjective Notes: Conditional Voluntary Interim History: Patient seen, chart reviewed. Case discussed with RN. Remains preoccupied with want ting to be discharged. Acknowledges having sleep prblems with frequent awakenings. Feels that his memory is cloudy. Was touched that brought him food even though she is proceeding with filing out divorce paperwork. Medication Compliance: Yes Side effects from medications: No Attending Groups: No Review of Systems Acute medical concerns: No Mental Status Exam Mental Status Exam Patient Appearance: Well Grooomed Level of Consciousness: Alert Patient Behavior: Cooperative Mood Description: Anxious Affect Description: Appropriate and Apprehensive Patient Cognition Impaired: No Speech Pattern: Clear Memory Description: Intact Hallucinations: None Delusions: Not Present Thought Process: Intact Thought Content: positive for Perseveration Depressive Symptoms: Increased Anxiety and Difficulty Sleeping Judgement: Fair Diagnostics Vital Signs (24Hr): Vital Signs - 24 hr 06/13/22 20:15 06/14/22 08:59 Temperature 97.2 F 97.9 F Pulse Rate 102 H 104 H Respiratory Rate 18 18 Blood Pressure 158/93 H 151/88 H Pulse Oximetry 96 97 Oxygen Delivery Method Room Air Room Air BMI result Body Mass Index 28.0 Labs 06/04/22 19:24 06/06/22 07:49 Medications Medications Current Medications Acetaminophen (Acetaminophen 325 Mg Tablet) 650 mg PO Q6H PRN PRN Reason: Headache/Pain Mild Scale (1-3) Al Hydroxide/Mg Hydroxide (Magnesium Hydrox/Alum Hydrox 30 Ml Oral.Susp) 30 ml PO Q6H PRN PRN Reason: Heartburn/Nausea Hydroxyzine HCl (Hydroxyzine Hcl 50 Mg Tablet) 50 mg PO Q6H PRN PRN Reason: Anxiety Last Admin: 06/14/22 13:50 Dose: 50 mg [place] Carbonate ([place] Carbonate Er 300 Mg Tablet.Er) 600 mg PO BID KARINA Last Admin: 06/14/22 08:54 Dose: 600 mg Lorazepam (Lorazepam 1 Mg Tablet) 2 mg PO BEDTIME KARINA Last Admin: 06/13/22 20:47 Dose: 2 mg Lorazepam (Lorazepam 1 Mg Tablet) 1 mg PO Q6H PRN PRN Reason: agitation/sleep Last Admin: 06/14/22 09:36 Dose: 1 mg [place] Hydroxide (Milk Of Magnesia 30 Ml Oral.Susp) 30 ml PO DAILY PRN PRN Reason: Constipation Nicotine Polacrilex (Nicotine Polacrilex 2 Mg Gum) 4 mg BUCCAL Q2H PRN PRN Reason: Nicotine Cravings Olanzapine (Olanzapine 5 Mg Tablet) 5 mg PO Q4H PRN PRN Reason: Agitation Last Admin: 06/14/22 06:54 Dose: 5 mg Olanzapine (Olanzapine 2.5 Mg Tablet) 2.5 mg PO DAILY [facility] Last Admin: 06/14/22 08:54 Dose: 2.5 mg Olanzapine (Olanzapine 10 Mg Tablet) 20 mg PO BEDTIME KARINA Last Admin: 06/13/22 20:46 Dose: 20 mg Olanzapine (Olanzapine Odt 10 Mg Tab.Rapdis) 10 mg TRANSLINGU Q6H PRN PRN Reason: agitation Last Admin: 06/14/22 00:50 Dose: 10 mg Trazodone HCl (Trazodone Hcl 100 Mg Tablet) 100 mg PO BEDTIME PRN PRN Reason: insomnia Last Admin: 06/14/22 00:51 Dose: 100 mg Allergies Allergies Allergy/AdvReac Type Severity Reaction Status Date / Time No Known Allergies Allergy Verified 12/01/21 20:33 [No Known Allergies*] Assessment & Plan Assessment & Plan (1) Bipolar disorder: Status: Acute Code(s): F31.9 - Bipolar disorder, unspecified Plan presents with likely history of bipolar disorder and psychosis. Hyper oriental orthodox, impacting relationships. Some paranoia and internal preoccupation noticed. Has not slept. Is elated. Pressured speech and flight of ideas. Has agreed to olanzapine and will schedule to 0.5 mg twice daily and 5 mg at bedtime along with Ativan as needed. 06/07: Continue to encourage adherence with olanzapine and utilize as needed medications. Primary team liaise with family as needed and patient permits. 06/08: manic. schedule zyprexa 15 at HS and increase lithium to 600 BID. 06/09: less manic today. sleep remains an issue. start ativan 2 mg PO QHS. 06/10: more irritable/labile today. sleep still a problem. add ativan 2 mg QHS PRN, increase HS zyprexa from 15 to 20 mg. signed in on a CV yesterday, then signed 3-day notice, which is up 06/12. 06/11: 3-day notice rescinded again. less irritable/labile than yesterday. continue current mgmt. check lithium level wednesday evening. 06/12 continue tx. Olanzapine 10mg po q6h, prn agitation, restlessness. continue lithium, will recheck lithium prior to dc along with TSH and CMP. he does report increase thirst, and urination. 06/13: no med changes 06/14: change trazodone to 100 mg standing dose, check lithium level tomorrow morning Reason for continued inpatient stay Substantial Risk for: rapid decompensation Time Spent With Patient Time: Total time managing care of this patient today ____ minutes.
--- NOTE | 2022-06-14 14:07 | HO.PSYADMNOT ---
HPI Date of Service: 06/14/22 Chief Complaint: elinor HPI Past Psychiatric History: Very unclear diagnostic history and has difficulty with giving past history and episodes. Did describe having periods of elation but unable to give clear symptoms associated. Also described. The feeling depressed but unable to give clear symptoms. Denied suicide attempts or feeling suicidal in the past. Reports being prescribed Zoloft, Wellbutrin, Seroquel in the past. Reports being on Zoloft for a number of years and Wellbutrin being added around 1 month ago because he felt anxious. Stop Ritalin himself as he felt more nervous. Did have difficulty recalling medications when prompted. Reported 1st admission and would like referral to psychiatrist however unclear if he has a prescriber and therapist at the [facility]. Medical Evaluation Reviewed: Yes [facility] Medical History No pertinent past medical history Surgical History No pertinent past surgical history Social History: appears to of left patient recently and staying with her parents. 17-year-old daughter staying with a friend. Reports he and his have been together for 22 years. 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 Reports being pentecostal and the whole family got baptized together in 2011 Diagnostics Vital Signs (24Hr): Vital Signs - 24 hr 06/13/22 20:15 06/14/22 08:59 Temperature 97.2 F 97.9 F Pulse Rate 102 H 104 H Respiratory Rate 18 18 Blood Pressure 158/93 H 151/88 H Pulse Oximetry 96 97 Oxygen Delivery Method Room Air Room Air BMI result Body Mass Index 28.0 Labs 06/04/22 19:24 06/06/22 07:49 Meds/Allergies Allergies Allergies Allergy/AdvReac Type Severity Reaction Status Date / Time No Known Allergies Allergy Verified 12/01/21 20:33 [No Known Allergies*] Assessment & Plan Patient educated on: diagnosis, medication risk/benefits, substance abuse, ECT, TMS, therapeutic strategies, medical condition and other Reason for continued inpatient stay Substantial Risk for: harm to self, harm to others, inability to function, stable for discharge, rapid decompensation, med/psych decompensation and other Statement Statement: I have reviewed the history and physical and performed a pertinent examination on my patient. No changes have occurred unless specified. If the History and Physical was not performed prior to admission, the Hospitalist's service will be consulted for completing the admission physical. Time Spent With Patient Time: Total time managing care of this patient today ____ minutes.
[2022-06-14 19:15] VITALS: BP 154/94; PULSE 117; RESP 18; TEMP 36.4; O2SAT 98
--- NOTE | 2022-06-14 21:07 | PC.NURSE ---
Jose Manuel is noted to be visible intermittently he is calm and cooperative. he endorses depression / and anxiety /10 It's hard to be anxious around you, you have a calming effect on me. he is alert, orient and future focused. His heart rate and blood pressure remain elevated. 117, 154/99. It's always high that's normal for me it's been high since I was a teenager continue to monitor for safety, continue Plan of Care
[2022-06-14] MEDS: OLANZapine 10 MG TABLET 20 MG PO (22:44)
[2022-06-15] MEDS: LORazepam 1 MG TABLET PO ×3 (03:07→14:58)
[2022-06-15] MEDS: hydrOXYzine HCL 50 MG TABLET PO ×3 (04:19→17:00)
[2022-06-15] MEDS: OLANZapine 5 MG TABLET PO ×2 (04:19→10:53)
[2022-06-15] MEDS: Lithium Carbonate ER 300 MG TABLET.ER 600 MG PO (08:30)
[2022-06-15] MEDS: OLANZapine 2.5 MG TABLET PO (08:31)
[2022-06-15 09:23] LABS: Lithium 0.42 mmol/L (0.60-1.20)
[2022-06-15 09:37] VITALS: BP 169/86; PULSE 106; RESP 16; TEMP 36.7; O2SAT 96
--- NOTE | 2022-06-15 13:51 | P.PNPSI_ITS ---
Subjective Subjective Date of Service: 06/15/22 Reason For Visit: elinor Subjective Notes: Conditional Voluntary Interim History: Some sleep disturbance. More pressured today. Wanted to get his cell phone and show me a video he recorded during a thunderstorm which had lights moving through the air. States he has tried to talk to multiple peope about what this might be but feels people don't listen. Patient able to hear some information about elinor and how the person who is manic often does not see the problem but others around them notice a difference. He did concede that multiple people had noticed changes in him that were upsetting. Patient agreeable to increase meds and is concerned that he did not sleep well last night. Taking multiple PRNs of zydis, ativan and vistaril. Medication Compliance: Yes Side effects from medications: No Attending Groups: No Review of Systems Acute medical concerns: No Mental Status Exam Mental Status Exam Patient Appearance: Well Grooomed Level of Consciousness: Alert Patient Behavior: Talkative and Restless Mood Description: Anxious Affect Description: Labile Patient Cognition Impaired: No Speech Pattern: Rapid and Excessive Hallucinations: None Delusions: Paranoid Ideation Thought Process: Racing Thought Content: positive for Disorganized Depressive Symptoms: Increased Anxiety and Insomnia Judgement: Fair Diagnostics Vital Signs (24Hr): Vital Signs - 24 hr 06/14/22 19:15 06/15/22 09:37 Temperature 97.6 F 98.0 F Pulse Rate 117 H 106 H Respiratory Rate 18 16 Blood Pressure 154/94 H 169/86 H Pulse Oximetry 98 96 Oxygen Delivery Method Room Air Room Air BMI result Body Mass Index 28.0 Labs 06/04/22 19:24 06/06/22 07:49 Labs: Laboratory Results - last 48 hr 06/15/22 08:10 [place] 0.42 L Medications Medications Current Medications Acetaminophen (Acetaminophen 325 Mg Tablet) 650 mg PO Q6H PRN PRN Reason: Headache/Pain Mild Scale (1-3) Al Hydroxide/Mg Hydroxide (Magnesium Hydrox/Alum Hydrox 30 Ml Oral.Susp) 30 ml PO Q6H PRN PRN Reason: Heartburn/Nausea Hydroxyzine HCl (Hydroxyzine Hcl 50 Mg Tablet) 50 mg PO Q6H PRN PRN Reason: Anxiety Last Admin: 06/15/22 10:53 Dose: 50 mg [place] Carbonate ([place] Carbonate Er 300 Mg Tablet.Er) 600 mg PO BID KARINA Last Admin: 06/15/22 08:30 Dose: 600 mg Lorazepam (Lorazepam 1 Mg Tablet) 1 mg PO Q6H PRN PRN Reason: agitation/sleep Last Admin: 06/15/22 09:00 Dose: 1 mg Magnesium Hydroxide (Milk Of Magnesia 30 Ml Oral.Susp) 30 ml PO DAILY PRN PRN Reason: Constipation Nicotine Polacrilex (Nicotine Polacrilex 2 Mg Gum) 4 mg BUCCAL Q2H PRN PRN Reason: Nicotine Cravings Olanzapine (Olanzapine 5 Mg Tablet) 5 mg PO Q4H PRN PRN Reason: Agitation Last Admin: 06/15/22 10:53 Dose: 5 mg Olanzapine (Olanzapine 2.5 Mg Tablet) 2.5 mg PO DAILY [facility] Last Admin: 06/15/22 08:31 Dose: 2.5 mg Olanzapine (Olanzapine 10 Mg Tablet) 20 mg PO BEDTIME [facility] Last Admin: 06/14/22 22:44 Dose: 20 mg Olanzapine (Olanzapine Odt 10 Mg Tab.Rapdis) 10 mg TRANSLINGU Q6H PRN PRN Reason: agitation Last Admin: 06/14/22 00:50 Dose: 10 mg Trazodone HCl (Trazodone Hcl 100 Mg Tablet) 100 mg PO BEDTIME [facility] Last Admin: 06/14/22 22:44 Dose: 100 mg Allergies Allergies Allergy/AdvReac Type Severity Reaction Status Date / Time No Known Allergies Allergy Verified 12/01/21 20:33 [No Known Allergies*] Assessment & Plan Assessment & Plan (1) Bipolar disorder: Status: Acute Code(s): F31.9 - Bipolar disorder, unspecified Plan presents with likely history of bipolar disorder and psychosis. Hyper yazidism, impacting relationships. Some paranoia and internal preoccupation noticed. Has not slept. Is elated. Pressured speech and flight of ideas. Has agreed to olanzapine and will schedule to 0.5 mg twice daily and 5 mg at bedtime along with Ativan as needed. 06/07: Continue to encourage adherence with olanzapine and utilize as needed medications. Primary team liaise with family as needed and patient permits. 06/08: manic. schedule zyprexa 15 at HS and increase lithium to 600 BID. 06/09: less manic today. sleep remains an issue. start ativan 2 mg PO QHS. 06/10: more irritable/labile today. sleep still a problem. add ativan 2 mg QHS PRN, increase HS zyprexa from 15 to 20 mg. signed in on a CV yesterday, then signed 3-day notice, which is up 06/12. 06/11: 3-day notice rescinded again. less irritable/labile than yesterday. continue current mgmt. check lithium level wednesday evening. 06/12 continue tx. Olanzapine 10mg po q6h, prn agitation, restlessness. continue lithium, will recheck lithium prior to dc along with TSH and CMP. he does report increase thirst, and urination. 06/13: no med changes 06/14: change trazodone to 100 mg standing dose, check lithium level tomorrow morning 06/15:increase AM zyprexa to 10 mg, increase lithobid to 600/900 due to level of 0.42 this morning Reason for continued inpatient stay Substantial Risk for: inability to function Time Spent With Patient Time: Total time managing care of this patient today ____ minutes.
[2022-06-15 20:23] VITALS: BP 157/98; PULSE 95; RESP 16; TEMP 36.6; O2SAT 98
[2022-06-15] MEDS: traZODone HCL 100 MG TABLET PO (20:43)
[2022-06-15] MEDS: OLANZapine 10 MG TABLET 20 MG PO (20:43)
[2022-06-15] MEDS: Lithium Carbonate ER 450 MG TABLET.ER 900 MG PO (20:43)
[2022-06-15] MEDS: Magnesium Hydrox/Alum Hydrox 30 ML ORAL.SUSP PO (20:56)
[2022-06-16] MEDS: LORazepam 1 MG TABLET PO ×3 (02:25→19:59)
[2022-06-16] MEDS: OLANZapine 10 MG TABLET PO (08:25)
[2022-06-16] MEDS: Lithium Carbonate ER 300 MG TABLET.ER 600 MG PO (08:25)
[2022-06-16 08:26] VITALS: BP 141/91; PULSE 106; RESP 18; TEMP 36.4; O2SAT 99
[2022-06-16] MEDS: OLANZapine 5 MG TABLET PO (14:14)
--- NOTE | 2022-06-16 15:50 | HO.PSYCHPN ---
Subjective Subjective Date of Service: 06/16/22 Reason For Visit: elinor Subjective Notes: Conditional Voluntary and 3 Day Interim History: Pt continues to present with some orthodoxy ideas, of God sending him messages in different forms. He denies SI/HI. He is sleeping better, less labile, irritable at times. He is taking medications as prescribed and open to continue taking them. He slept through the night. No behavioral concerns. 3day up tomorrow- organized and improved enough to be discharged. Medication Compliance: Yes Side effects from medications: No Review of Systems Review of Systems Unremarkable Yes Unobtainable due to mental condition Mental Status Exam Mental Status Exam Narrative: street clothing. Speech is less pressured. mood mod irritable. No SI, HI expressed. Insight and judgment fair when discussing medications, poor re mental illness. Diagnostics Vital Signs (24Hr): Vital Signs - 24 hr 06/15/22 20:23 06/16/22 08:26 Temperature 97.9 F 97.6 F Pulse Rate 95 106 H Respiratory Rate 16 18 Blood Pressure 157/98 H 141/91 H Pulse Oximetry 98 99 Oxygen Delivery Method Room Air Room Air BMI result Body Mass Index 28.0 Labs 06/04/22 19:24 06/06/22 07:49 Labs: Laboratory Results - last 48 hr 06/15/22 08:10 [place] 0.42 L Medications Medications Current Medications Acetaminophen (Acetaminophen 325 Mg Tablet) 650 mg PO Q6H PRN PRN Reason: Headache/Pain Mild Scale (1-3) Al Hydroxide/Mg Hydroxide (Magnesium Hydrox/Alum Hydrox 30 Ml Oral.Susp) 30 ml PO Q6H PRN PRN Reason: Heartburn/Nausea Last Admin: 06/15/22 20:56 Dose: 30 ml Hydroxyzine HCl (Hydroxyzine Hcl 50 Mg Tablet) 50 mg PO Q6H PRN PRN Reason: Anxiety Last Admin: 06/15/22 17:00 Dose: 50 mg [place] Carbonate ([place] Carbonate Er 300 Mg Tablet.Er) 600 mg PO DAILY KARINA Last Admin: 06/16/22 08:25 Dose: 600 mg [place] Carbonate ([place] Carbonate Er 450 Mg Tablet.Er) 900 mg PO BEDTIME KARINA Last Admin: 06/15/22 20:43 Dose: 900 mg Lorazepam (Lorazepam 1 Mg Tablet) 1 mg PO Q6H PRN PRN Reason: agitation/sleep Last Admin: 06/16/22 11:43 Dose: 1 mg Magnesium Hydroxide (Milk Of Magnesia 30 Ml Oral.Susp) 30 ml PO DAILY PRN PRN Reason: Constipation Nicotine Polacrilex (Nicotine Polacrilex 2 Mg Gum) 4 mg BUCCAL Q2H PRN PRN Reason: Nicotine Cravings Olanzapine (Olanzapine 10 Mg Tablet) 20 mg PO BEDTIME [facility] Last Admin: 06/15/22 20:43 Dose: 20 mg Olanzapine (Olanzapine 5 Mg Tablet) 5 mg PO BID PRN PRN Reason: Agitation Last Admin: 06/16/22 14:14 Dose: 5 mg Olanzapine (Olanzapine 10 Mg Tablet) 10 mg PO DAILY [facility] Last Admin: 06/16/22 08:25 Dose: 10 mg Trazodone HCl (Trazodone Hcl 100 Mg Tablet) 100 mg PO BEDTIME [facility] Last Admin: 06/15/22 20:43 Dose: 100 mg Allergies Allergies Allergy/AdvReac Type Severity Reaction Status Date / Time No Known Allergies Allergy Verified 12/01/21 20:33 [No Known Allergies*] Assessment & Plan Assessment & Plan (1) Bipolar disorder: Status: Acute Code(s): F31.9 - Bipolar disorder, unspecified Plan presents with likely history of bipolar disorder and psychosis. Hyper orthodoxy, impacting relationships. Some paranoia and internal preoccupation noticed. Has not slept. Is elated. Pressured speech and flight of ideas. Has agreed to olanzapine and will schedule to 0.5 mg twice daily and 5 mg at bedtime along with Ativan as needed. 06/07: Continue to encourage adherence with olanzapine and utilize as needed medications. Primary team liaise with family as needed and patient permits. 06/08: manic. schedule zyprexa 15 at HS and increase lithium to 600 BID. 06/09: less manic today. sleep remains an issue. start ativan 2 mg PO QHS. 06/10: more irritable/labile today. sleep still a problem. add ativan 2 mg QHS PRN, increase HS zyprexa from 15 to 20 mg. signed in on a CV yesterday, then signed 3-day notice, which is up 06/12. 06/11: 3-day notice rescinded again. less irritable/labile than yesterday. continue current mgmt. check lithium level wednesday evening. 06/12 continue tx. Olanzapine 10mg po q6h, prn agitation, restlessness. continue lithium, will recheck lithium prior to dc along with TSH and CMP. he does report increase thirst, and urination. 06/13: no med changes 06/14: change trazodone to 100 mg standing dose, check lithium level tomorrow morning 06/15:increase AM zyprexa to 10 mg, increase lithobid to 600/900 due to level of 0.42 this morning 06/16 continue tx. dc tomorrow when 3 day is up. Reason for continued inpatient stay Substantial Risk for: inability to function Time Spent With Patient Time: Total time managing care of this patient today ____ minutes.
[2022-06-16] MEDS: traZODone HCL 100 MG TABLET PO (21:23)
[2022-06-16] MEDS: Lithium Carbonate ER 450 MG TABLET.ER 900 MG PO (21:23)
[2022-06-16] MEDS: OLANZapine 10 MG TABLET 20 MG PO (21:23)
[2022-06-16 21:26] VITALS: BP 147/97; PULSE 116; TEMP 36.7; O2SAT 98
[2022-06-17] MEDS: hydrOXYzine HCL 50 MG TABLET PO (02:15)
[2022-06-17] MEDS: OLANZapine 5 MG TABLET PO (02:15)
[2022-06-17] MEDS: Lithium Carbonate ER 300 MG TABLET.ER 600 MG PO (08:05)
[2022-06-17] MEDS: OLANZapine 10 MG TABLET PO (08:05)
[2022-06-17] MEDS: LORazepam 1 MG TABLET PO (08:05)
[2022-06-17 08:09] VITALS: BP 154/92; PULSE 107; RESP 18; TEMP 36.7; O2SAT 95
--- NOTE | 2022-06-17 09:25 | PM.PSYDC ---
DS: Providers Provider Date of Service: 06/17/22 Date of admission: 06/05/22 16:10 Primary care physician: Unknown Physician DS: Diagnosis Discharge Diagnosis (1) Bipolar disorder: Status: Acute DS: Medications Discharge Medications Home Medications: Previous Rx's Medication Instructions Recorded lithium carbonate 300 mg 600 mg PO DAILY #60 tabs 06/17/22 tablet,extended release lithium carbonate 450 mg 900 mg PO BEDTIME #60 tabs 06/17/22 tablet,extended release olanzapine 10 mg tablet 10 mg PO DAILY #30 tabs 06/17/22 olanzapine 20 mg tablet 20 mg PO BEDTIME #30 tabs 06/17/22 trazodone 100 mg tablet 100 mg PO BEDTIME #30 tabs 06/17/22 Mental Status Exam Mental Status Exam Narrative: street clothing. Speech is less pressured. mood less irritable, less labile. No SI, HI expressed. Less baptism preoccupation. NO VH/AH. Insight and judgment fair when discussing medications, poor re mental illness. Data Data Completed and Pending Completed studies during hospitalization [Text1]: 06/15/22 08:10 [place] 0.42 L DS: Summary Hospital Course Hospital Course: HPI: As per nursing admit note: has had increased aggression at the home where he lives with his . The pts reports that he lost 20 lbs in a month and hasn't slept in 3 days. Pt was aggressive when he was in the ED requiring a chemical and physical restraint. Pts mood is labile with a congruent affect. Pt is grandiose with rapid pressured speech. Thoughts are tangential and disorganized. Pt becomes angry and tearful when discussing his with, he believes she placed him her because he demands that she pray . Pt is religiously preoccupied, praying on the floor several times during the admission. ? met with patient.? Discussed with Nursing.? Review chart.? Patient does present slightly pressured with flight of ideas.? Reports that his Angelique became upset with him and had a [address] 12 placed because he wanted her to understand why he wanted to read the Bible all of the time.? Reports that she laughed because he was doing this so much and is now staying with her parents.? Reports a 17-year-old daughter is staying with a friend.? Very upset regarding his leaving I put her on a throne .? has not slept in days.? Reports feeling extremely happy.? Also some irritability.? Denies substance issues.? Tox screen largely unremarkable. Reports he and his have been together for 22 years.? 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 Reports being baptism and the whole family got baptized together in 2011 We did discuss medications and open to olanzapine.? Reports being prescribed Zoloft, Wellbutrin, Seroquel in the past.? Reports being on Zoloft for a number of years and Wellbutrin being added around 1 month ago because he felt anxious.? Stop Ritalin himself as he felt more nervous.? Did have difficulty recalling medications when prompted.? Reported 1st admission and would like referral to psychiatrist and? unclear if he has a therapist at the [facility].? Past Psychiatric History: ? Very unclear diagnostic history and has difficulty with giving past history and episodes.? Did describe having periods of elation but unable to give clear symptoms associated.? Also described.? The feeling depressed but unable to give clear symptoms.? Denied suicide attempts or feeling suicidal in the past. Reports being prescribed Zoloft, Wellbutrin, Seroquel in the past.? Reports being on Zoloft for a number of years and Wellbutrin being added around 1 month ago because he felt anxious.? Stop Ritalin himself as he felt more nervous.? Did have difficulty recalling medications when prompted.? Reported 1st admission and would like referral to psychiatrist however unclear if he has a prescriber and therapist at the [facility]. Medical Evaluation Reviewed: Yes HOSPITAL COURSE On the unit, pt was admitted on a CV and placed on 15 minutes checks for safety. Pt presented with labile affect. Pentecostalism preoccupation and interpreting things around him as messages from God. He denied SI/HI. He initially was not sleeping well and was pacing halls during the day. After discussing risks, benefits and alternative treatment options, pt agreed to start olanzapine and lithium. His affect gradually presented as less labile. He was less religiously preoccupied but continued to believe that he had seen God's messages. He denied SI/HI. No need for restraints during this admission. He did agree to continue outpatient psychiatric treatment and was slightly more open to diagnosis of Bipolar Disorder. Collateral information gathered from his who reported pt appeared in much improved condition. Status at Discharge Cognitive/behavioral status at discharge: Pt with less irritable, less labile affect. Less baptism preoccupation. No SI/HI. no signs of aggression towards self or others. Pt's sleep improved. Functional status at discharge: independent ambulation Overall status at discharge: patient is progressing back to baseline Time Spent with Patient Time attestation: Total time managing care of this patient today ____ minutes. Discharge Plan Discharge Anticipated Discharge Date/Time: 06/17/22 09:11 Patient Disposition: Home, Self-Care Discharge Diagnosis: Bipolar type 1 Disorder, manic episode Referrals: Ruby Whitehead (Therapy & Psychiatry) [Other] - 06/17/22 12:00 pm (IN OFFICE APPOINTMENT -Once you complete this intake, you will then be set up with therapy and psychiatry appointments. ) Gem Singh CNP [Nurse Practitioner] - 1 Week (Spoke with Lisa at 's office. They will call him to make appointment. 06/17/2022) Discharge Medications: New lithium carbonate 450 mg Tablet Extended Release 900 mg PO BEDTIME Qty: 60 0RF lithium carbonate 300 mg Tablet Extended Release 600 mg PO DAILY Qty: 60 0RF olanzapine 20 mg tablet 20 mg PO BEDTIME Qty: 30 0RF olanzapine 10 mg Tablet 10 mg PO DAILY Qty: 30 0RF trazodone 100 mg Tablet 100 mg PO BEDTIME Qty: 30 0RF Discontinued sertraline 100 mg tablet 1 tab PO DAILY bupropion HCl 150 mg tablet extended release 24 hr 1 tab PO DAILY Discharge Orders: Discharge Order (Routine); Ordered 06/17/22 Ordered By: Rebecca Mae Diet: Regular diet Activity on Discharge: As tolerated Stand Alone Forms: Patient Portal Discharge page, Community Support Care Plan Goals: 1. Maintain mood 2. Less baptism ideations, improved sleep 3. No SI/HI Health Concerns: Follow up with PCP Plan of Treatment: 1. Take medications as prescribed 2. Go to nearest ED or call 911 in event of emergency Assessment: Pt with less labile, less religiously preoccupied. Sleep and appetite is better. No aggression towards self or others. Discharge Date/Time: 06/17/22 10:03
== END 2022-06-17 10:03 | disposition home or self-care (01) | DRG 753 ==
LOC: HO.ED 13:49 → HO.PADLT16 06-05 16:20
PROVIDERS: Social Worker; Admitting Provider Psychiatry & Neurology Psychiatry; Emergency Provider Emergency Medicine; Visit Provider Psychiatry & Neurology Psychiatry
DX: F31.10 Bipolar disorder, current episode manic without psychotic features, unspecified (principal); Z20.822 Contact with and (suspected) exposure to COVID-19; Z79.899 Other long term (current) drug therapy
CPT/HCPCS: 36415; 80053; 80061; 80178; 80307; 81003; 82077; 82607; 82746; 83036; 84439; 84443; 85025; 87635; 93005; 99285; J2060; S9485

== ENCOUNTER → 2022-06-05 16:10 | Outpatient (BNV) | payer OTHER, SELFPAY | PROVIDERS: Admitting Provider Psychiatry & Neurology Psychiatry; Emergency Provider Emergency Medicine; Visit Provider Psychiatry & Neurology Psychiatry | DX: F31.13 Bipolar disorder, current episode manic without psychotic features, severe (principal) | CPT/HCPCS: 90792; 99231; 99232; 99238 ==